=== PATIENT | male | born 1960 | race Caucasian/White ===

== ENCOUNTER 2017-12-13 05:34 | Inpatient (IN) | payer MEDICARE, MEDICAID ==
[~2017-12-13] VITALS: Ht 170.2 cm; Wt 66.7 kg
[~2017-12-13 05:34] MED LIST: ZYPREXIA PO
[2017-12-13] MEDS ORDERED: OLAN10TA3 PO (06:21)
[2017-12-13 06:40] LABS: BASOPHILS % (AUTO) 0.5 % (0.0-2.0); EOSINOPHILS % (AUTO) 1.3 % (1.0-6.0); HEMATOCRIT 39.1 % (41-53); HEMOGLOBIN 13.8 g/dL (13.5-17.5); LYMPHOCYTES # (AUTO) 1.3 K/uL (1.0-4.8); LYMPHOCYTES % (AUTO) 17.3 % (22.0-44.0); MEAN CORPUSCULAR HEMOGLOBIN 31.8 pg (26.0-34.0); MEAN CORPUSCULAR HGB CONC 35.4 G/dL (31.0-37.0); MEAN CORPUSCULAR VOLUME 90 fL (80-100); MONOCYTES # (AUTO) 0.9 K/uL (0.1-1.0); MONOCYTES % (AUTO) 11.4 % (2.0-9.0); NEUTROPHILS # (AUTO) 5.2 K/uL (1.8-7.7); NEUTROPHILS % (AUTO) 69.5 % (40.0-70.0); PLATELET COUNT (AUTO) 238 K/uL (150-450); RED BLOOD CELL COUNT(AUTO) 4.35 MIL/uL (4.50-5.90); RED CELL DISTRIBUTION WIDTH 12.2 % (11.5-14.5)
[2017-12-13 06:50] LABS: AMPHET/METH SCREEN,URINE NEGATIVE (NEGATIVE); BARBITURATE SCREEN, URINE NEGATIVE (NEGATIVE); BENZODIAZEPINES SCREEN,URINE NEGATIVE (NEGATIVE); CANNABINOID SCREEN,URINE NEGATIVE (NEGATIVE); COCAINE SCREEN,URINE NEGATIVE (NEGATIVE); METHADONE SCREEN, URINE NEGATIVE (NEGATIVE); OPIATE SCREEN,URINE NEGATIVE (NEGATIVE)
[2017-12-13 06:53] LABS: ANION GAP 6 mmol/L (8-16); CALCIUM, TOTAL 8.6 mg/dL (8.8-10.5); CARBON DIOXIDE 27 mmol/L (22-29); CHLORIDE 105 mmol/L (98-107); CREATININE 1.03 mg/dL (0.60-1.30); GLOMERULAR FILTR. RATE CALC > 60 mL/min (>60); GLUCOSE,RANDOM 110 mg/dL (70-110); POTASSIUM 3.6 mmol/L (3.5-5.1); SODIUM SERUM 138 mmol/L (136-145); UREA NITROGEN, BLOOD 22 mg/dL (7-18)
[2017-12-13 07:01] LABS: PHENCYCLIDINE SCREEN,URINE NEGATIVE (NEGATIVE)
[2017-12-13 07:07] LABS: ALANINE AMINOTRANSFERASE 71 U/L (12-78); ALBUMIN 3.4 g/dL (3.4-5.0); ALKALINE PHOSPHATASE 90 U/L (46-116); ASPARTATE AMINOTRANSFERASE 54 U/L (15-37); BILIRUBIN,TOTAL 0.2 mg/dL (0.1-1.0); TOTAL PROTEIN, SERUM 7.7 g/dL (6.4-8.2)
[2017-12-13] MEDS ORDERED: HALOPERIDOL 5 MG TABLET PO ONE (09:30)
[2017-12-13] MEDS ORDERED: DiphenhydrAMINE HCL 25 MG CAPSULE PO ONE (09:30)
[2017-12-13] MEDS ORDERED: LORazepam 2 MG TABLET PO ONE (09:30)
[2017-12-13] MEDS ORDERED: ZOLPIDEM TARTRATE 10 MG TABLET PO PRN (10:00)
[2017-12-13] MEDS ORDERED: OLANZapine 5 MG RAPDIS TABLET PO PRN (10:00)
[2017-12-13 11:32] VITALS: BP 132/66
[2017-12-13 11:38] LABS: CHOLESTEROL 116 mg/dL (131-200); HDL CHOLESTEROL 57 mg/dL (40-60); LDL CHOL (CALC.) 48 mg/dL (0-130); TRIGLYCERIDES 54 mg/dL (15-150)
[2017-12-13] MEDS: OLANZapine 10 MG TABLET PO SCH (21:26)
[2017-12-14 08:00] VITALS: BP 113/60
[2017-12-14 12:26] LABS: FOLATE SERUM 12.3 ng/mL (5.4-)
[2017-12-14 16:59] VITALS: BP 123/68
[2017-12-14] MEDS: BENZTROPINE MESYLATE 1 MG TABLET PO SCH (21:20)
[2017-12-14] MEDS: OLANZapine 10 MG TABLET PO SCH (21:20)
[2017-12-15 08:00] VITALS: BP 128/71
[2017-12-15 08:55] LABS: HEMOGLOBIN A1C 6.1 % (4.5-6.2)
[2017-12-15 09:06] LABS: ALANINE AMINOTRANSFERASE 64 U/L (12-78); ALBUMIN 3.5 g/dL (3.4-5.0); ALKALINE PHOSPHATASE 67 U/L (46-116); ANION GAP 4 mmol/L (8-16); ASPARTATE AMINOTRANSFERASE 45 U/L (15-37); BILIRUBIN,TOTAL 0.6 mg/dL (0.1-1.0); CALCIUM, TOTAL 8.9 mg/dL (8.8-10.5); CARBON DIOXIDE 31 mmol/L (22-29); CHLORIDE 101 mmol/L (98-107); CREATININE 0.73 mg/dL (0.60-1.30); FREE T4 (FREE THYROXINE) 1.07 ng/dL (0.76-1.46); GLOMERULAR FILTR. RATE CALC > 60 mL/min (>60); GLUCOSE,RANDOM 103 mg/dL (70-110); SODIUM SERUM 136 mmol/L (136-145); THYROID STIMULATING HORMONE 2.46 uIU/mL (0.36-3.74); TOTAL PROTEIN, SERUM 8.3 g/dL (6.4-8.2); UREA NITROGEN, BLOOD 8 mg/dL (7-18)
[2017-12-15 16:00] VITALS: BP 128/76
[2017-12-15] MEDS: BENZTROPINE MESYLATE 1 MG TABLET PO SCH (20:25)
[2017-12-15] MEDS: OLANZapine 10 MG TABLET PO SCH (20:25)
[2017-12-16 08:42] VITALS: BP 114/60
[2017-12-16] MEDS: BENZTROPINE MESYLATE 1 MG TABLET PO SCH (20:52)
[2017-12-16] MEDS: OLANZapine 10 MG TABLET PO SCH (20:53)
[2017-12-17 08:46] VITALS: BP 116/59
[2017-12-17] MEDS: OLANZapine 10 MG TABLET PO SCH (20:57)
[2017-12-17] MEDS: BENZTROPINE MESYLATE 1 MG TABLET PO SCH (20:57)
[2017-12-18 08:42] VITALS: BP 122/70
[2017-12-18 18:28] VITALS: BP 109/68
[2017-12-18] MEDS: BENZTROPINE MESYLATE 1 MG TABLET PO SCH (20:06)
[2017-12-18] MEDS: OLANZapine 10 MG TABLET PO SCH (20:06)
[2017-12-19 08:41] VITALS: BP 106/64
[2017-12-19] MEDS: DIVALPROEX SODIUM 500 MG DR TABLET PO SCH ×2 (09:36→20:27)
[2017-12-19] MEDS: LORazepam 2 MG TABLET PO PRN (15:51)
[2017-12-19 16:16] VITALS: BP 125/67
[2017-12-19] MEDS: BENZTROPINE MESYLATE 1 MG TABLET PO SCH (20:25)
[2017-12-19] MEDS: OLANZapine 10 MG TABLET PO SCH (20:25)
[2017-12-20] MEDS: DIVALPROEX SODIUM 500 MG DR TABLET PO SCH ×2 (08:10→21:58)
[2017-12-20 08:41] VITALS: BP 104/67
[2017-12-20 16:34] VITALS: BP 103/60
[2017-12-20] MEDS: BENZTROPINE MESYLATE 1 MG TABLET PO SCH (21:58)
[2017-12-20] MEDS: OLANZapine 10 MG TABLET PO SCH (21:58)
[2017-12-21 08:00] VITALS: BP 109/69
[2017-12-21] MEDS: DIVALPROEX SODIUM 500 MG DR TABLET PO SCH ×2 (08:30→21:51)
[2017-12-21 16:00] VITALS: BP 110/61
[2017-12-21] MEDS: BENZTROPINE MESYLATE 1 MG TABLET PO SCH (21:51)
[2017-12-21] MEDS: OLANZapine 10 MG TABLET PO SCH (21:51)
[2017-12-22] MEDS: DIVALPROEX SODIUM 500 MG DR TABLET PO SCH ×2 (08:27→20:15)
[2017-12-22 09:26] VITALS: BP 101/60
[2017-12-22 16:28] VITALS: BP 130/67
[2017-12-22] MEDS: BENZTROPINE MESYLATE 1 MG TABLET PO SCH (20:15)
[2017-12-22] MEDS: OLANZapine 10 MG TABLET PO SCH (20:15)
[2017-12-23 04:48] VITALS: BP 106/56
[2017-12-23] MEDS: DIVALPROEX SODIUM 500 MG DR TABLET PO SCH ×2 (08:20→20:11)
[2017-12-23 08:32] VITALS: BP 122/66
[2017-12-23 18:31] VITALS: BP 120/77
[2017-12-23] MEDS: BENZTROPINE MESYLATE 1 MG TABLET PO SCH (20:11)
[2017-12-23] MEDS: OLANZapine 10 MG TABLET PO SCH (20:11)
[2017-12-24 05:09] VITALS: BP 101/55
[2017-12-24] MEDS: DIVALPROEX SODIUM 500 MG DR TABLET PO SCH ×2 (08:15→20:44)
[2017-12-24 08:32] VITALS: BP 120/61
[2017-12-24 16:42] VITALS: BP 123/65
[2017-12-24] MEDS: BENZTROPINE MESYLATE 1 MG TABLET PO SCH (20:43)
[2017-12-24] MEDS: OLANZapine 10 MG TABLET PO SCH (20:44)
[2017-12-25] MEDS: DIVALPROEX SODIUM 500 MG DR TABLET PO SCH ×2 (08:22→20:55)
[2017-12-25 08:35] VITALS: BP 105/68
[2017-12-25 16:00] VITALS: BP 119/60
[2017-12-25] MEDS: LORazepam 2 MG TABLET PO PRN (16:37)
[2017-12-25] MEDS: BENZTROPINE MESYLATE 1 MG TABLET PO SCH (20:55)
[2017-12-25] MEDS: OLANZapine 10 MG TABLET PO SCH (22:00)
[2017-12-26] MEDS: DIVALPROEX SODIUM 500 MG DR TABLET PO SCH ×2 (08:16→21:33)
[2017-12-26 08:52] VITALS: BP 97/62
[2017-12-26 19:05] VITALS: BP 113/68
[2017-12-26] MEDS: OLANZapine 10 MG TABLET PO SCH (21:33)
[2017-12-26] MEDS: BENZTROPINE MESYLATE 1 MG TABLET PO SCH (21:33)
[2017-12-27] MEDS: DIVALPROEX SODIUM 500 MG DR TABLET PO SCH ×2 (07:54→21:43)
[2017-12-27 13:33] VITALS: BP 110/67
[2017-12-27 19:47] VITALS: BP 100/66
[2017-12-27] MEDS: OLANZapine 10 MG TABLET PO SCH (21:43)
[2017-12-27] MEDS: BENZTROPINE MESYLATE 1 MG TABLET PO SCH (21:44)
[2017-12-28 08:00] VITALS: BP 104/68
[2017-12-28] MEDS: DIVALPROEX SODIUM 500 MG DR TABLET PO SCH ×2 (08:46→21:29)
[2017-12-28] MEDS: OLANZapine 5 MG TABLET PO SCH (14:57)
[2017-12-28 16:00] VITALS: BP 107/69
[2017-12-28] MEDS: BENZTROPINE MESYLATE 1 MG TABLET PO SCH (21:29)
[2017-12-28] MEDS: OLANZapine 10 MG TABLET PO SCH (21:29)
[2017-12-29 08:00] VITALS: BP 101/60
[2017-12-29] MEDS: DIVALPROEX SODIUM 500 MG DR TABLET PO SCH ×2 (08:03→20:26)
[2017-12-29] MEDS: OLANZapine 5 MG TABLET PO SCH (08:03)
[2017-12-29] MEDS: LORazepam 2 MG TABLET PO PRN (11:11)
[2017-12-29 16:15] VITALS: BP 109/70
[2017-12-29] MEDS: OLANZapine 10 MG TABLET PO SCH (20:25)
[2017-12-29] MEDS: BENZTROPINE MESYLATE 1 MG TABLET PO SCH (20:25)
[2017-12-30] MEDS: DIVALPROEX SODIUM 500 MG DR TABLET PO SCH ×2 (07:51→20:38)
[2017-12-30] MEDS: OLANZapine 5 MG TABLET PO SCH (07:51)
[2017-12-30 08:28] VITALS: BP 122/71
[2017-12-30] MEDS: LORazepam 2 MG TABLET PO PRN (16:27)
[2017-12-30] MEDS: BENZTROPINE MESYLATE 1 MG TABLET PO SCH (20:38)
[2017-12-30] MEDS: OLANZapine 10 MG TABLET PO SCH (20:38)
[2017-12-31 08:05] VITALS: BP 92/64
[2017-12-31] MEDS: DIVALPROEX SODIUM 500 MG DR TABLET PO SCH ×2 (08:40→20:28)
[2017-12-31] MEDS: OLANZapine 5 MG TABLET PO SCH (08:40)
[2017-12-31] MEDS: LORazepam 2 MG TABLET PO PRN (08:42)
[2017-12-31 17:12] VITALS: BP 102/60
[2017-12-31] MEDS: BENZTROPINE MESYLATE 1 MG TABLET PO SCH (20:28)
[2017-12-31] MEDS: OLANZapine 10 MG TABLET PO SCH (20:30)
[2018-01-01] MEDS: DIVALPROEX SODIUM 500 MG DR TABLET PO SCH ×2 (09:00→20:16)
[2018-01-01] MEDS: OLANZapine 5 MG TABLET PO SCH (09:01)
[2018-01-01] MEDS: LORazepam 2 MG TABLET PO PRN (09:02)
[2018-01-01 17:03] VITALS: BP 102/56
[2018-01-01] MEDS: OLANZapine 10 MG TABLET PO SCH (20:16)
[2018-01-01] MEDS: BENZTROPINE MESYLATE 1 MG TABLET PO SCH (20:16)
[2018-01-02] MEDS: OLANZapine 5 MG TABLET PO SCH (08:27)
[2018-01-02] MEDS: DIVALPROEX SODIUM 500 MG DR TABLET PO SCH ×2 (08:27→20:19)
[2018-01-02 08:57] VITALS: BP 95/57
[2018-01-02] MEDS ORDERED: OLANZapine 5 MG TABLET PO ONE (10:30)
[2018-01-02] MEDS: BENZTROPINE MESYLATE 1 MG TABLET PO SCH (20:19)
[2018-01-02] MEDS: OLANZapine 10 MG TABLET PO SCH (20:20)
[2018-01-02 21:18] VITALS: BP 132/57
[2018-01-03 08:00] VITALS: BP 109/70
[2018-01-03] MEDS: DIVALPROEX SODIUM 500 MG DR TABLET PO SCH ×2 (09:27→21:34)
[2018-01-03] MEDS: OLANZapine 10 MG TABLET PO SCH ×2 (09:34→21:34)
[2018-01-03 16:00] VITALS: BP 125/74
[2018-01-03] MEDS: BENZTROPINE MESYLATE 1 MG TABLET PO SCH (21:34)
[2018-01-04] MEDS: DIVALPROEX SODIUM 500 MG DR TABLET PO SCH ×2 (08:41→21:07)
[2018-01-04] MEDS: OLANZapine 10 MG TABLET PO SCH ×2 (08:41→21:06)
[2018-01-04 09:00] VITALS: BP 94/63
[2018-01-04 16:33] VITALS: BP 109/62
[2018-01-04] MEDS: BENZTROPINE MESYLATE 1 MG TABLET PO SCH (21:07)
[2018-01-05 08:47] VITALS: BP 91/67
[2018-01-05] MEDS: OLANZapine 10 MG TABLET PO SCH ×2 (08:56→20:15)
[2018-01-05] MEDS: DIVALPROEX SODIUM 500 MG DR TABLET PO SCH ×2 (08:56→20:14)
[2018-01-05 18:47] VITALS: BP 102/63
[2018-01-05] MEDS: BENZTROPINE MESYLATE 1 MG TABLET PO SCH (20:14)
[2018-01-06 08:00] VITALS: BP 113/59
[2018-01-06] MEDS: DIVALPROEX SODIUM 500 MG DR TABLET PO SCH ×2 (09:22→20:59)
[2018-01-06] MEDS: OLANZapine 10 MG TABLET PO SCH ×2 (09:22→21:00)
[2018-01-06] MEDS: LORazepam 2 MG TABLET PO PRN (16:30)
[2018-01-06 16:53] VITALS: BP 125/77
[2018-01-06] MEDS: BENZTROPINE MESYLATE 1 MG TABLET PO SCH (20:59)
[2018-01-07] MEDS: OLANZapine 10 MG TABLET PO SCH ×2 (08:11→21:36)
[2018-01-07] MEDS: DIVALPROEX SODIUM 500 MG DR TABLET PO SCH ×2 (08:11→21:36)
[2018-01-07 13:01] VITALS: BP 128/62
[2018-01-07 16:21] VITALS: BP 130/77
[2018-01-07] MEDS: BENZTROPINE MESYLATE 1 MG TABLET PO SCH (21:36)
[2018-01-08] MEDS: OLANZapine 10 MG TABLET PO SCH ×2 (08:35→21:26)
[2018-01-08] MEDS: DIVALPROEX SODIUM 500 MG DR TABLET PO SCH ×2 (08:35→21:26)
[2018-01-08 10:08] VITALS: BP 101/65
[2018-01-08 16:50] VITALS: BP 120/67
[2018-01-08] MEDS: BENZTROPINE MESYLATE 1 MG TABLET PO SCH (21:25)
[2018-01-09] MEDS: DIVALPROEX SODIUM 500 MG DR TABLET PO SCH ×2 (08:52→21:12)
[2018-01-09] MEDS: OLANZapine 10 MG TABLET PO SCH ×2 (08:52→21:12)
[2018-01-09 08:55] VITALS: BP 136/74
[2018-01-09] MEDS ORDERED: DIVA-78 PO (10:23)
[2018-01-09] MEDS ORDERED: OLAN10TA20 PO ×2 (10:23)
[2018-01-09] MEDS: LORazepam 2 MG TABLET PO PRN (12:51)
[2018-01-09 17:00] VITALS: BP 107/58
[2018-01-09] MEDS: BENZTROPINE MESYLATE 1 MG TABLET PO SCH (21:11)
[2018-01-10] MEDS: DIVALPROEX SODIUM 500 MG DR TABLET PO SCH ×2 (08:02→20:24)
[2018-01-10] MEDS: OLANZapine 10 MG TABLET PO SCH ×2 (08:02→20:24)
[2018-01-10 08:56] VITALS: BP 124/84
[2018-01-10 16:44] VITALS: BP 112/58
[2018-01-10] MEDS: BENZTROPINE MESYLATE 1 MG TABLET PO SCH (20:24)
[2018-01-11] MEDS: DIVALPROEX SODIUM 500 MG DR TABLET PO SCH ×2 (09:03→20:31)
[2018-01-11] MEDS: OLANZapine 10 MG TABLET PO SCH ×2 (09:04→20:31)
[2018-01-11 10:28] VITALS: BP 104/59
[2018-01-11 16:00] VITALS: BP 135/63
[2018-01-11] MEDS: BENZTROPINE MESYLATE 1 MG TABLET PO SCH (20:31)
[2018-01-12 08:00] VITALS: BP 108/60
[2018-01-12] MEDS: DIVALPROEX SODIUM 500 MG DR TABLET PO SCH ×2 (08:57→21:18)
[2018-01-12] MEDS: OLANZapine 10 MG TABLET PO SCH ×2 (08:58→21:19)
[2018-01-12] MEDS: LORazepam 2 MG TABLET PO PRN (15:57)
[2018-01-12 16:30] VITALS: BP 137/70
[2018-01-12] MEDS: BENZTROPINE MESYLATE 1 MG TABLET PO SCH (21:18)
[2018-01-13 08:31] VITALS: BP 97/61
[2018-01-13] MEDS: DIVALPROEX SODIUM 500 MG DR TABLET PO SCH ×2 (09:00→20:51)
[2018-01-13] MEDS: LORazepam 2 MG TABLET PO PRN ×2 (09:00→20:51)
[2018-01-13] MEDS: OLANZapine 10 MG TABLET PO SCH ×2 (09:00→20:52)
[2018-01-13] MEDS: BENZTROPINE MESYLATE 1 MG TABLET PO SCH (20:52)
[2018-01-14 08:00] VITALS: BP 118/63
[2018-01-14] MEDS: DIVALPROEX SODIUM 500 MG DR TABLET PO SCH ×2 (08:43→20:31)
[2018-01-14] MEDS: OLANZapine 10 MG TABLET PO SCH ×2 (08:43→20:31)
[2018-01-14] MEDS: LORazepam 2 MG TABLET PO PRN (10:42)
[2018-01-14 16:30] VITALS: BP 99/58
[2018-01-14] MEDS: BENZTROPINE MESYLATE 1 MG TABLET PO SCH (20:30)
[2018-01-15 08:00] VITALS: BP 101/61
[2018-01-15] MEDS: DIVALPROEX SODIUM 500 MG DR TABLET PO SCH ×2 (08:26→20:01)
[2018-01-15] MEDS: OLANZapine 10 MG TABLET PO SCH ×2 (08:26→20:01)
[2018-01-15] MEDS: LORazepam 2 MG TABLET PO PRN (08:26)
[2018-01-15] MEDS: BENZTROPINE MESYLATE 1 MG TABLET PO SCH (20:01)
[2018-01-16] MEDS: DIVALPROEX SODIUM 500 MG DR TABLET PO SCH ×2 (08:08→20:07)
[2018-01-16] MEDS: OLANZapine 10 MG TABLET PO SCH ×2 (08:08→20:08)
[2018-01-16] MEDS: LORazepam 2 MG TABLET PO PRN (08:09)
[2018-01-16 09:43] VITALS: BP 104/74
[2018-01-16 16:52] VITALS: BP 132/98
[2018-01-16] MEDS: BENZTROPINE MESYLATE 1 MG TABLET PO SCH (20:08)
[2018-01-17 08:05] VITALS: BP 98/62
[2018-01-17] MEDS: OLANZapine 10 MG TABLET PO SCH ×2 (08:47→20:34)
[2018-01-17] MEDS: DIVALPROEX SODIUM 500 MG DR TABLET PO SCH ×2 (08:47→20:34)
[2018-01-17 16:58] VITALS: BP 103/68
[2018-01-17] MEDS: BENZTROPINE MESYLATE 1 MG TABLET PO SCH (20:34)
[2018-01-18 08:00] VITALS: BP 111/67
[2018-01-18] MEDS: OLANZapine 10 MG TABLET PO SCH (08:11)
[2018-01-18] MEDS: DIVALPROEX SODIUM 500 MG DR TABLET PO SCH (08:11)
[2018-01-18] MEDS ORDERED: OLAN10TA20 PO (09:34)
[2018-01-18] MEDS ORDERED: BENZ1TAB10 PO (10:35)
[2018-01-18] MEDS: LORazepam 2 MG TABLET PO PRN (13:27)
== END 2018-01-18 14:30 | disposition home or self-care (01) | DRG 885 ==
LOC: EMS 05:34 → 3EC 10:48
DX: F20.0 Paranoid schizophrenia (principal); R79.89 Other specified abnormal findings of blood chemistry; F17.210 Nicotine dependence, cigarettes, uncomplicated; F15.90 Other stimulant use, unspecified, uncomplicated; Z79.899 Other long term (current) drug therapy; Z72.89 Other problems related to lifestyle
CPT/HCPCS: 80074; 82306; 82607; 82746; 83036; 84439; 84443; 87081; 99285; G0480

== ENCOUNTER 2018-01-19 21:01 | Emergency (ER) | payer MEDICARE, MEDICAID ==
[~2018-01-19] VITALS: Ht 165.1 cm; Wt 64.0 kg
[~2018-01-19 21:01] MED LIST changes: +BENZ1TAB10 PO; +DIVA-78 PO; +OLAN10TA20 PO; -ZYPREXIA PO
[2018-01-19 21:45] LABS: BASOPHILS % (AUTO) 0.9 % (0.0-2.0); EOSINOPHILS % (AUTO) 0.3 % (1.0-6.0); HEMATOCRIT 38.6 % (41-53); HEMOGLOBIN 13.1 g/dL (13.5-17.5); LYMPHOCYTES # (AUTO) 1.8 K/uL (1.0-4.8); LYMPHOCYTES % (AUTO) 27.2 % (22.0-44.0); MEAN CORPUSCULAR HEMOGLOBIN 30.7 pg (26.0-34.0); MEAN CORPUSCULAR VOLUME 91 fL (80-100); MONOCYTES # (AUTO) 1.2 K/uL (0.1-1.0); MONOCYTES % (AUTO) 18.4 % (2.0-9.0); NEUTROPHILS # (AUTO) 3.5 K/uL (1.8-7.7); NEUTROPHILS % (AUTO) 53.2 % (40.0-70.0); PLATELET COUNT (AUTO) 154 K/uL (150-450); RED BLOOD CELL COUNT(AUTO) 4.26 MIL/uL (4.50-5.90); RED CELL DISTRIBUTION WIDTH 13.8 % (11.5-14.5)
[2018-01-19 21:54] LABS: ANION GAP 7 mmol/L (8-16); CALCIUM, TOTAL 8.6 mg/dL (8.8-10.5); CARBON DIOXIDE 27 mmol/L (22-29); CHLORIDE 104 mmol/L (98-107); CREATININE 1.15 mg/dL (0.60-1.30); GLOMERULAR FILTR. RATE CALC > 60 mL/min (>60); GLUCOSE,RANDOM 134 mg/dL (70-110); POTASSIUM 3.9 mmol/L (3.5-5.1); SODIUM SERUM 138 mmol/L (136-145); UREA NITROGEN, BLOOD 20 mg/dL (7-18)
[2018-01-19 22:00] LABS: ALANINE AMINOTRANSFERASE 164 U/L (12-78); ALBUMIN 3.3 g/dL (3.4-5.0); ALKALINE PHOSPHATASE 76 U/L (46-116); ASPARTATE AMINOTRANSFERASE 110 U/L (15-37); BILIRUBIN,TOTAL 0.3 mg/dL (0.1-1.0); VALPROIC ACID 27 mcg/mL (50-100)
[2018-01-19] MEDS ORDERED: LORazepam 2 MG/ML VIAL IM ONE (22:15)
[2018-01-19] MEDS ORDERED: DiphenhydrAMINE HCL 50 MG/ML VIAL IM ONE (22:15)
[2018-01-19] MEDS ORDERED: HALOPERIDOL LACTATE 5 MG/ML VIAL IM ONE (22:15)
[2018-01-19 23:13] LABS: AMPHET/METH SCREEN,URINE NEGATIVE (NEGATIVE); BARBITURATE SCREEN, URINE NEGATIVE (NEGATIVE); BENZODIAZEPINES SCREEN,URINE NEGATIVE (NEGATIVE); CANNABINOID SCREEN,URINE NEGATIVE (NEGATIVE); COCAINE SCREEN,URINE NEGATIVE (NEGATIVE); METHADONE SCREEN, URINE NEGATIVE (NEGATIVE); OPIATE SCREEN,URINE NEGATIVE (NEGATIVE)
[2018-01-19 23:21] LABS: PHENCYCLIDINE SCREEN,URINE NEGATIVE (NEGATIVE)
[2018-01-20 06:44] VITALS: BP 143/73
== END 2018-01-20 06:46 | disposition home or self-care (01) ==
LOC: EMS 21:02
DX: F20.0 Paranoid schizophrenia (principal); F17.210 Nicotine dependence, cigarettes, uncomplicated; Z79.899 Other long term (current) drug therapy
CPT/HCPCS: 36415; 80053; 80164; 80307; 85025; 96372; 99285; G0480; J1200; J1630; J2060

== ENCOUNTER 2018-01-27 12:24 | Inpatient (IN) | payer MEDICARE, MEDICAID ==
[~2018-01-27] VITALS: Ht 167.6 cm; Wt 64.0 kg
[2018-01-27] MEDS ORDERED: HALOPERIDOL LACTATE 5 MG/ML VIAL IM ONE (12:45)
[2018-01-27] MEDS ORDERED: DiphenhydrAMINE HCL 50 MG/ML VIAL IM ONE (12:45)
[2018-01-27] MEDS ORDERED: LORazepam 2 MG/ML VIAL IM ONE (12:45)
[2018-01-27 12:49] LABS: BASOPHILS % (AUTO) 1.2 % (0.0-2.0); EOSINOPHILS % (AUTO) 0.9 % (1.0-6.0); HEMATOCRIT 38.3 % (41-53); HEMOGLOBIN 13.1 g/dL (13.5-17.5); LYMPHOCYTES # (AUTO) 1.5 K/uL (1.0-4.8); MEAN CORPUSCULAR HGB CONC 34.2 G/dL (31.0-37.0); MEAN CORPUSCULAR VOLUME 91 fL (80-100); MONOCYTES # (AUTO) 0.6 K/uL (0.1-1.0); MONOCYTES % (AUTO) 12.5 % (2.0-9.0); NEUTROPHILS # (AUTO) 2.9 K/uL (1.8-7.7); NEUTROPHILS % (AUTO) 56.4 % (40.0-70.0); PLATELET COUNT (AUTO) 207 K/uL (150-450); RED BLOOD CELL COUNT(AUTO) 4.23 MIL/uL (4.50-5.90); RED CELL DISTRIBUTION WIDTH 14.1 % (11.5-14.5)
[2018-01-27 13:10] LABS: ANION GAP 10 mmol/L (8-16); CALCIUM, TOTAL 8.5 mg/dL (8.8-10.5); CARBON DIOXIDE 26 mmol/L (22-29); CHLORIDE 102 mmol/L (98-107); GLOMERULAR FILTR. RATE CALC > 60 mL/min (>60); GLUCOSE,RANDOM 122 mg/dL (70-110); POTASSIUM 3.9 mmol/L (3.5-5.1); SODIUM SERUM 138 mmol/L (136-145); UREA NITROGEN, BLOOD 10 mg/dL (7-18)
[2018-01-27 13:12] LABS: ALANINE AMINOTRANSFERASE 91 U/L (12-78); ALBUMIN 3.2 g/dL (3.4-5.0); ALKALINE PHOSPHATASE 76 U/L (46-116); ASPARTATE AMINOTRANSFERASE 54 U/L (15-37); BILIRUBIN,TOTAL 0.4 mg/dL (0.1-1.0); TOTAL PROTEIN, SERUM 7.9 g/dL (6.4-8.2)
[2018-01-27 15:28] LABS: APPEARANCE,URINE CLEAR (CLEAR); BILIRUBIN,URINE NEGATIVE (NEGATIVE); GLUCOSE, URINE (UA) NEGATIVE (NEGATIVE); KETONES,URINE NEGATIVE (NEGATIVE); LEUKOCYTE ESTERASE ,URINE NEGATIVE (NEGATIVE); NITRATE,URINE NEGATIVE (NEGATIVE); OCCULT BLOOD,URINE NEGATIVE (NEGATIVE); PROTEIN,URINE NEGATIVE (NEGATIVE); UROBILINOGEN,URINE 0.2 mg/dL (<=1.0)
[2018-01-27 15:40] LABS: AMPHET/METH SCREEN,URINE NEGATIVE (NEGATIVE); BARBITURATE SCREEN, URINE NEGATIVE (NEGATIVE); BENZODIAZEPINES SCREEN,URINE NEGATIVE (NEGATIVE); CANNABINOID SCREEN,URINE NEGATIVE (NEGATIVE); COCAINE SCREEN,URINE NEGATIVE (NEGATIVE); METHADONE SCREEN, URINE NEGATIVE (NEGATIVE); OPIATE SCREEN,URINE NEGATIVE (NEGATIVE)
[2018-01-27 15:41] LABS: PHENCYCLIDINE SCREEN,URINE NEGATIVE (NEGATIVE)
[2018-01-27 22:26] VITALS: BP 117/77
[2018-01-28 05:38] VITALS: BP 106/60
[2018-01-28 08:21] VITALS: BP 116/64
[2018-01-28] MEDS: DIVALPROEX SODIUM 500 MG DR TABLET PO SCH ×2 (10:49→20:17)
[2018-01-28] MEDS: OLANZapine 10 MG TABLET PO SCH ×2 (10:49→20:17)
[2018-01-28 16:00] VITALS: BP 113/68
[2018-01-28] MEDS: BENZTROPINE MESYLATE 1 MG TABLET PO SCH (20:17)
[2018-01-29 06:52] VITALS: BP 108/67
[2018-01-29 08:07] VITALS: BP 138/75
[2018-01-29] MEDS: LORazepam 2 MG TABLET PO PRN ×2 (08:32→17:16)
[2018-01-29] MEDS: OLANZapine 10 MG TABLET PO SCH ×2 (08:32→20:17)
[2018-01-29] MEDS: HALOPERIDOL 5 MG TABLET PO PRN ×2 (08:32→17:16)
[2018-01-29] MEDS: DIVALPROEX SODIUM 500 MG DR TABLET PO SCH ×2 (08:32→20:17)
[2018-01-29 16:00] VITALS: BP 108/65
[2018-01-29] MEDS: BENZTROPINE MESYLATE 1 MG TABLET PO SCH (20:17)
[2018-01-30 06:16] VITALS: BP 100/58
[2018-01-30] MEDS: DIVALPROEX SODIUM 500 MG DR TABLET PO SCH ×2 (08:03→21:05)
[2018-01-30] MEDS: OLANZapine 10 MG TABLET PO SCH ×2 (08:03→21:05)
[2018-01-30] MEDS: LORazepam 2 MG TABLET PO PRN ×2 (08:03→16:33)
[2018-01-30] MEDS: HALOPERIDOL 5 MG TABLET PO PRN ×2 (08:03→16:33)
[2018-01-30 10:22] VITALS: BP 119/68
[2018-01-30 16:00] VITALS: BP 121/65
[2018-01-30] MEDS: ZOLPIDEM TARTRATE 10 MG TABLET PO PRN (21:05)
[2018-01-30] MEDS: BENZTROPINE MESYLATE 1 MG TABLET PO SCH (21:05)
[2018-01-31 06:13] VITALS: BP 113/68
[2018-01-31 09:06] VITALS: BP 116/67
[2018-01-31] MEDS: DIVALPROEX SODIUM 500 MG DR TABLET PO SCH ×2 (10:25→20:22)
[2018-01-31] MEDS: OLANZapine 10 MG TABLET PO SCH ×2 (10:26→20:22)
[2018-01-31 16:30] VITALS: BP 124/78
[2018-01-31] MEDS: ZOLPIDEM TARTRATE 10 MG TABLET PO PRN (20:22)
[2018-01-31] MEDS: BENZTROPINE MESYLATE 1 MG TABLET PO SCH (20:22)
[2018-02-01 00:05] VITALS: BP 101/63
[2018-02-01 08:12] VITALS: BP 111/75
[2018-02-01] MEDS: OLANZapine 10 MG TABLET PO SCH ×2 (08:19→20:33)
[2018-02-01] MEDS: DIVALPROEX SODIUM 500 MG DR TABLET PO SCH ×2 (08:19→20:35)
[2018-02-01 16:00] VITALS: BP 118/69
[2018-02-01] MEDS: LORazepam 2 MG TABLET PO PRN (16:18)
[2018-02-01] MEDS: HALOPERIDOL 5 MG TABLET PO PRN (16:18)
[2018-02-01] MEDS ORDERED: BISACODYL 5 MG EC TABLET PO PRN (16:45)
[2018-02-01] MEDS: BENZTROPINE MESYLATE 1 MG TABLET PO SCH (20:33)
[2018-02-01] MEDS: PALIPERIDONE 3 MG ER TABLET PO SCH (20:33)
[2018-02-01] MEDS: ZOLPIDEM TARTRATE 10 MG TABLET PO PRN (20:33)
[2018-02-02 06:14] VITALS: BP 114/63
[2018-02-02 08:01] VITALS: BP 125/68
[2018-02-02] MEDS: PALIPERIDONE 3 MG ER TABLET PO SCH ×2 (08:18→20:19)
[2018-02-02] MEDS: DIVALPROEX SODIUM 500 MG DR TABLET PO SCH ×2 (08:19→20:19)
[2018-02-02 16:00] VITALS: BP 134/76
[2018-02-02] MEDS ORDERED: PALIPERIDONE PALMITATE 234 MG/1.5 ML SYRINGE IM ONE (16:00)
[2018-02-02] MEDS: BENZTROPINE MESYLATE 1 MG TABLET PO SCH (20:19)
[2018-02-02] MEDS: OLANZapine 10 MG TABLET PO SCH (20:19)
[2018-02-02] MEDS: LORazepam 2 MG TABLET PO PRN (20:20)
[2018-02-03 06:15] VITALS: BP 128/74
[2018-02-03 08:00] VITALS: BP 116/65
[2018-02-03] MEDS: DIVALPROEX SODIUM 500 MG DR TABLET PO SCH ×2 (08:32→20:10)
[2018-02-03] MEDS: PALIPERIDONE 3 MG ER TABLET PO SCH ×2 (08:32→20:10)
[2018-02-03 16:00] VITALS: BP 129/71
[2018-02-03] MEDS: LORazepam 2 MG TABLET PO PRN (16:17)
[2018-02-03] MEDS: BENZTROPINE MESYLATE 1 MG TABLET PO SCH (20:10)
[2018-02-03] MEDS: OLANZapine 10 MG TABLET PO SCH (20:10)
[2018-02-04 06:03] VITALS: BP 105/68
[2018-02-04 08:18] VITALS: BP 101/61
[2018-02-04] MEDS: DIVALPROEX SODIUM 500 MG DR TABLET PO SCH ×2 (08:29→20:50)
[2018-02-04] MEDS: PALIPERIDONE 3 MG ER TABLET PO SCH ×2 (08:30→20:50)
[2018-02-04 16:21] VITALS: BP 119/63
[2018-02-04] MEDS: LORazepam 2 MG TABLET PO PRN (18:12)
[2018-02-04] MEDS: HALOPERIDOL 5 MG TABLET PO PRN (18:12)
[2018-02-04] MEDS: OLANZapine 10 MG TABLET PO SCH (20:50)
[2018-02-04] MEDS: ZOLPIDEM TARTRATE 10 MG TABLET PO PRN (20:50)
[2018-02-04] MEDS: BENZTROPINE MESYLATE 1 MG TABLET PO SCH (20:50)
[2018-02-05 06:58] VITALS: BP 117/67
[2018-02-05 08:01] VITALS: BP 103/58
[2018-02-05] MEDS: DIVALPROEX SODIUM 500 MG DR TABLET PO SCH ×2 (08:18→20:25)
[2018-02-05] MEDS: PALIPERIDONE 3 MG ER TABLET PO SCH ×2 (08:18→20:26)
[2018-02-05 16:19] VITALS: BP 111/63
[2018-02-05] MEDS: OLANZapine 10 MG TABLET PO SCH (20:25)
[2018-02-05] MEDS: BENZTROPINE MESYLATE 1 MG TABLET PO SCH (20:25)
[2018-02-05] MEDS: LORazepam 2 MG TABLET PO PRN (20:26)
[2018-02-05] MEDS: ZOLPIDEM TARTRATE 10 MG TABLET PO PRN (20:26)
[2018-02-06 06:19] VITALS: BP 107/66
[2018-02-06 08:32] VITALS: BP 113/64
[2018-02-06] MEDS: PALIPERIDONE 3 MG ER TABLET PO SCH ×2 (08:34→21:06)
[2018-02-06] MEDS: DIVALPROEX SODIUM 500 MG DR TABLET PO SCH ×2 (08:34→21:05)
[2018-02-06] MEDS ORDERED: PALIPERIDONE PALMITATE 156 MG/ML SYRINGE IM ONE (09:00)
[2018-02-06 09:46] LABS: ALANINE AMINOTRANSFERASE 40 U/L (12-78); ALBUMIN 3.1 g/dL (3.4-5.0); ALKALINE PHOSPHATASE 95 U/L (46-116); ANION GAP 8 mmol/L (8-16); ASPARTATE AMINOTRANSFERASE 28 U/L (15-37); BILIRUBIN,TOTAL 0.3 mg/dL (0.1-1.0); CALCIUM, TOTAL 8.9 mg/dL (8.8-10.5); CARBON DIOXIDE 30 mmol/L (22-29); CHLORIDE 108 mmol/L (98-107); CREATININE 0.75 mg/dL (0.60-1.30); GLOMERULAR FILTR. RATE CALC > 60 mL/min (>60); GLUCOSE,RANDOM 86 mg/dL (70-110); POTASSIUM 4.6 mmol/L (3.5-5.1); SODIUM SERUM 146 mmol/L (136-145); TOTAL PROTEIN, SERUM 7.9 g/dL (6.4-8.2); UREA NITROGEN, BLOOD 10 mg/dL (7-18)
[2018-02-06 13:06] LABS: CREATINE KINASE MB < 0.5 ng/mL (0-5)
[2018-02-06 16:00] VITALS: BP 121/72
[2018-02-06] MEDS: OLANZapine 10 MG TABLET PO SCH (21:05)
[2018-02-06] MEDS: BENZTROPINE MESYLATE 1 MG TABLET PO SCH (21:05)
[2018-02-06] MEDS: LORazepam 2 MG TABLET PO PRN (21:06)
[2018-02-07 04:49] VITALS: BP 118/69
[2018-02-07 08:00] VITALS: BP 112/64
[2018-02-07] MEDS: DIVALPROEX SODIUM 500 MG DR TABLET PO SCH (08:07)
[2018-02-07] MEDS: PALIPERIDONE 3 MG ER TABLET PO SCH (08:08)
[2018-02-07] MEDS ORDERED: PALI3 PO (10:39)
[2018-02-07] MEDS ORDERED: OLAN10TA3 PO (10:41)
== END 2018-02-07 11:40 | disposition home or self-care (01) | DRG 885 ==
LOC: EMS 12:24 → B3A 20:24 → EMS 21:48
DX: F25.0 Schizoaffective disorder, bipolar type (principal); E87.0 Hyperosmolality and hypernatremia; B19.20 Unspecified viral hepatitis C without hepatic coma; D64.9 Anemia, unspecified; F17.210 Nicotine dependence, cigarettes, uncomplicated; S01.81XA Laceration without foreign body of other part of head, initial encounter; X58.XXXA Exposure to other specified factors, initial encounter; E86.0 Dehydration; K59.00 Constipation, unspecified; L30.9 Dermatitis, unspecified; Y93.89 Activity, other specified; Y92.89 Other specified places as the place of occurrence of the external cause; Y99.8 Other external cause status; Z91.14 Patient's other noncompliance with medication regimen
CPT/HCPCS: 83735; 99285; G0480; J1200; J1630; J2060

== ENCOUNTER 2018-02-19 18:56 | Emergency (ER) | payer MEDICARE, MEDICAID ==
[~2018-02-19] VITALS: Ht 172.7 cm; Wt 84.1 kg
[~2018-02-19 18:56] MED LIST changes: -OLAN10TA20 PO; +OLAN10TA3 PO; +PALI3 PO
[2018-02-19] MEDS ORDERED: IBUPROFEN 800 MG TABLET PO ONE (19:30)
[2018-02-19 20:43] VITALS: BP 120/70
== END 2018-02-19 20:43 | disposition home or self-care (01) ==
LOC: EMS 18:57
DX: S62.613A Displaced fracture of proximal phalanx of left middle finger, initial encounter for closed fracture (principal); F20.9 Schizophrenia, unspecified; F17.210 Nicotine dependence, cigarettes, uncomplicated; X58.XXXA Exposure to other specified factors, initial encounter; Y93.72 Activity, wrestling; Y92.89 Other specified places as the place of occurrence of the external cause; Y99.8 Other external cause status
CPT/HCPCS: 99284; 99406

== ENCOUNTER 2018-04-21 22:48 | Inpatient (IN) | payer MEDICARE, MEDICAID ==
[~2018-04-21] VITALS: Ht 170.2 cm; Wt 65.0 kg
[2018-04-21 23:24] LABS: BASOPHILS % (AUTO) 0.5 % (0.0-2.0); EOSINOPHILS % (AUTO) 1.7 % (1.0-6.0); HEMATOCRIT 38.5 % (41-53); HEMOGLOBIN 13.1 g/dL (13.5-17.5); LYMPHOCYTES # (AUTO) 1.5 K/uL (1.0-4.8); MEAN CORPUSCULAR HEMOGLOBIN 29.2 pg (26.0-34.0); MEAN CORPUSCULAR HGB CONC 34.1 G/dL (31.0-37.0); MEAN CORPUSCULAR VOLUME 86 fL (80-100); MONOCYTES # (AUTO) 0.7 K/uL (0.1-1.0); MONOCYTES % (AUTO) 14.7 % (2.0-9.0); NEUTROPHILS # (AUTO) 2.3 K/uL (1.8-7.7); NEUTROPHILS % (AUTO) 50.1 % (40.0-70.0); PLATELET COUNT (AUTO) 186 K/uL (150-450); RED BLOOD CELL COUNT(AUTO) 4.49 MIL/uL (4.50-5.90); RED CELL DISTRIBUTION WIDTH 13.9 % (11.5-14.5)
[2018-04-21 23:34] LABS: ANION GAP 7 mmol/L (8-16); CALCIUM, TOTAL 9.1 mg/dL (8.8-10.5); CARBON DIOXIDE 32 mmol/L (22-29); CHLORIDE 101 mmol/L (98-107); CREATININE 0.78 mg/dL (0.60-1.30); GLOMERULAR FILTR. RATE CALC > 60 mL/min (>60); GLUCOSE,RANDOM 99 mg/dL (70-110); POTASSIUM 3.9 mmol/L (3.5-5.1); SODIUM SERUM 140 mmol/L (136-145); UREA NITROGEN, BLOOD 11 mg/dL (7-18)
[2018-04-21 23:40] LABS: ALANINE AMINOTRANSFERASE 85 U/L (12-78); ALBUMIN 2.9 g/dL (3.4-5.0); ALKALINE PHOSPHATASE 96 U/L (46-116); ASPARTATE AMINOTRANSFERASE 59 U/L (15-37); BILIRUBIN,TOTAL 0.2 mg/dL (0.1-1.0); TOTAL PROTEIN, SERUM 7.3 g/dL (6.4-8.2)
[2018-04-22 00:57] LABS: AMPHET/METH SCREEN,URINE POSITIVE (NEGATIVE); BARBITURATE SCREEN, URINE NEGATIVE (NEGATIVE); BENZODIAZEPINES SCREEN,URINE NEGATIVE (NEGATIVE); CANNABINOID SCREEN,URINE POSITIVE (NEGATIVE); COCAINE SCREEN,URINE NEGATIVE (NEGATIVE); METHADONE SCREEN, URINE NEGATIVE (NEGATIVE); OPIATE SCREEN,URINE NEGATIVE (NEGATIVE)
[2018-04-22 00:58] LABS: PHENCYCLIDINE SCREEN,URINE NEGATIVE (NEGATIVE)
[2018-04-22] MEDS ORDERED: HALOPERIDOL 5 MG TABLET PO PRN (01:15)
[2018-04-22 05:05] VITALS: BP 109/69
[2018-04-22 08:36] VITALS: BP 130/66
[2018-04-22] MEDS: ARIPiprazole 10 MG TABLET PO SCH (14:43)
[2018-04-22 16:34] VITALS: BP 112/60
[2018-04-23 06:18] VITALS: BP 110/68
[2018-04-23 08:28] LABS: CHOL/HDL RATIO 2.9 (4.2-7.3)
[2018-04-23 08:55] VITALS: BP 118/60
[2018-04-23] MEDS: MULTIVITAMINS WITH IRON TABLET PO SCH (09:45)
[2018-04-23] MEDS: ARIPiprazole 10 MG TABLET PO SCH (09:45)
[2018-04-23 16:03] VITALS: BP 111/64
[2018-04-23] MEDS ORDERED: IBUPROFEN 600 MG TABLET PO PRN (17:45)
[2018-04-23] MEDS: ACETAMINOPHEN 325 MG TABLET PO PRN (18:11)
[2018-04-23] MEDS: ZOLPIDEM TARTRATE 10 MG TABLET PO PRN (20:53)
[2018-04-24 06:59] VITALS: BP 120/81
[2018-04-24 08:27] VITALS: BP 121/74
[2018-04-24] MEDS: ARIPiprazole 15 MG TABLET PO SCH (09:17)
[2018-04-24] MEDS: MULTIVITAMINS WITH IRON TABLET PO SCH (09:17)
[2018-04-24] MEDS: LORazepam 2 MG TABLET PO PRN (14:21)
[2018-04-24 16:05] VITALS: BP 132/71
[2018-04-25 08:16] VITALS: BP 106/68
[2018-04-25] MEDS: ARIPiprazole 15 MG TABLET PO SCH (08:52)
[2018-04-25] MEDS: MULTIVITAMINS WITH IRON TABLET PO SCH (08:52)
[2018-04-25 16:18] VITALS: BP 130/71
[2018-04-26 03:19] VITALS: BP 126/80
[2018-04-26] MEDS: LORazepam 2 MG TABLET PO PRN (03:23)
[2018-04-26 08:26] VITALS: BP 112/67
[2018-04-26] MEDS: MULTIVITAMINS WITH IRON TABLET PO SCH (08:55)
[2018-04-26] MEDS ORDERED: ARIPiprazole 10 MG TABLET PO SCH (09:00)
[2018-04-26 16:06] VITALS: BP 113/90
[2018-04-27 05:44] VITALS: BP 112/66
[2018-04-27 08:07] VITALS: BP 121/67
[2018-04-27] MEDS: MULTIVITAMINS WITH IRON TABLET PO SCH (08:17)
[2018-04-27] MEDS: ARIPiprazole 15 MG TABLET PO SCH (08:17)
[2018-04-27 14:37] VITALS: BP 116/68
[2018-04-27] MEDS: ACETAMINOPHEN 325 MG TABLET PO PRN (14:37)
[2018-04-27 16:06] VITALS: BP 110/69
[2018-04-27] MEDS: LORazepam 2 MG TABLET PO PRN (18:04)
[2018-04-28 05:51] VITALS: BP 116/72
[2018-04-28 08:08] VITALS: BP 111/65
[2018-04-28] MEDS: ARIPiprazole 15 MG TABLET PO SCH (08:21)
[2018-04-28] MEDS: MULTIVITAMINS WITH IRON TABLET PO SCH (08:21)
[2018-04-28] MEDS ORDERED: ARIPiprazole LAUROXIL ER SUSPENSION 882 MG/3.2 ML SYRINGE IM ONE (09:45)
[2018-04-28 16:14] VITALS: BP 119/66
[2018-04-29 03:30] VITALS: BP 121/68
[2018-04-29] MEDS: MULTIVITAMINS WITH IRON TABLET PO SCH (08:18)
[2018-04-29] MEDS: ARIPiprazole 15 MG TABLET PO SCH (08:18)
[2018-04-29 08:30] VITALS: BP 121/67
[2018-04-29] MEDS: LORazepam 2 MG TABLET PO PRN (13:04)
[2018-04-29 16:04] VITALS: BP 118/69
[2018-04-30 05:16] VITALS: BP 121/68
[2018-04-30] MEDS: ARIPiprazole 15 MG TABLET PO SCH (08:19)
[2018-04-30] MEDS: MULTIVITAMINS WITH IRON TABLET PO SCH (08:19)
[2018-04-30 08:24] VITALS: BP 107/76
[2018-04-30] MEDS: LORazepam 2 MG TABLET PO PRN (16:02)
[2018-04-30 16:18] VITALS: BP 109/63
[2018-05-01 06:11] VITALS: BP 120/81
[2018-05-01] MEDS: MULTIVITAMINS WITH IRON TABLET PO SCH (08:04)
[2018-05-01] MEDS: ARIPiprazole 15 MG TABLET PO SCH (08:04)
[2018-05-01 08:16] VITALS: BP 117/64
[2018-05-01] MEDS ORDERED: DiphenhydrAMINE HCL 50 MG/ML VIAL ONE (10:40)
[2018-05-01] MEDS ORDERED: LORazepam 2 MG/ML VIAL ONE (10:40)
[2018-05-01] MEDS ORDERED: HALOPERIDOL LACTATE 5 MG/ML VIAL ONE (10:40)
[2018-05-01] MEDS ORDERED: HALOPERIDOL LACTATE 5 MG/ML VIAL IM ONE ×2 (10:45)
[2018-05-01] MEDS ORDERED: DiphenhydrAMINE HCL 50 MG/ML VIAL IM ONE ×2 (10:45)
[2018-05-01] MEDS ORDERED: LORazepam 2 MG/ML VIAL IM ONE ×2 (10:45)
[2018-05-01 11:15] VITALS: BP 113/65
[2018-05-01 16:09] VITALS: BP 110/68
[2018-05-01] MEDS: VALPROIC ACID 250 MG CAPSULE PO SCH (16:41)
[2018-05-01] MEDS: LORazepam 2 MG TABLET PO PRN (17:26)
[2018-05-02 04:10] VITALS: BP 112/66
[2018-05-02 08:12] VITALS: BP 122/70
[2018-05-02] MEDS: VALPROIC ACID 250 MG CAPSULE PO SCH ×2 (08:17→16:35)
[2018-05-02] MEDS: ARIPiprazole 15 MG TABLET PO SCH (08:18)
[2018-05-02] MEDS: MULTIVITAMINS WITH IRON TABLET PO SCH (08:18)
[2018-05-02 09:08] LABS: ALANINE AMINOTRANSFERASE 54 U/L (12-78); ALKALINE PHOSPHATASE 93 U/L (46-116); ANION GAP 7 mmol/L (8-16); ASPARTATE AMINOTRANSFERASE 34 U/L (15-37); BILIRUBIN,TOTAL 0.2 mg/dL (0.1-1.0); CALCIUM, TOTAL 8.6 mg/dL (8.8-10.5); CARBON DIOXIDE 28 mmol/L (22-29); CHLORIDE 103 mmol/L (98-107); GLOMERULAR FILTR. RATE CALC > 60 mL/min (>60); GLUCOSE,RANDOM 103 mg/dL (70-110); POTASSIUM 4.4 mmol/L (3.5-5.1); SODIUM SERUM 138 mmol/L (136-145); TOTAL PROTEIN, SERUM 7.1 g/dL (6.4-8.2); UREA NITROGEN, BLOOD 11 mg/dL (7-18)
[2018-05-02] MEDS: LORazepam 2 MG TABLET PO PRN (13:58)
[2018-05-02 16:10] VITALS: BP 135/86
[2018-05-03 01:29] VITALS: BP 106/67
[2018-05-03] MEDS: ARIPiprazole 15 MG TABLET PO SCH (08:06)
[2018-05-03] MEDS: VALPROIC ACID 250 MG CAPSULE PO SCH ×2 (08:06→16:51)
[2018-05-03] MEDS: MULTIVITAMINS WITH IRON TABLET PO SCH (08:06)
[2018-05-03 08:17] VITALS: BP 117/67
[2018-05-03 17:29] VITALS: BP 123/69
[2018-05-04 02:55] VITALS: BP 109/68
[2018-05-04 08:21] VITALS: BP 131/68
[2018-05-04] MEDS: MULTIVITAMINS WITH IRON TABLET PO SCH (08:21)
[2018-05-04] MEDS: VALPROIC ACID 250 MG CAPSULE PO SCH ×2 (08:21→16:02)
[2018-05-04] MEDS: ARIPiprazole 15 MG TABLET PO SCH (08:21)
[2018-05-04 08:30] LABS: BAND NEUTROPHILS % (MANUAL) 0 % (0-5)
[2018-05-04 08:35] LABS: HEMATOCRIT 40.1 % (41-53); HEMOGLOBIN 13.4 g/dL (13.5-17.5); MEAN CORPUSCULAR HEMOGLOBIN 29.1 pg (26.0-34.0); MEAN CORPUSCULAR HGB CONC 33.5 G/dL (31.0-37.0); MEAN CORPUSCULAR VOLUME 87 fL (80-100); PLATELET COUNT (AUTO) 222 K/uL (150-450); RED BLOOD CELL COUNT(AUTO) 4.61 MIL/uL (4.50-5.90); RED CELL DISTRIBUTION WIDTH 13.6 % (11.5-14.5)
[2018-05-04 09:34] LABS: EOSINOPHILS % (MANUAL) 1 % (1-6); LYMPHOCYTES % (MANUAL) 51 % (22-44); MONOCYTES % (MANUAL) 7 % (2-9); SEGMENTED NEUTROPHILS % 41 % (40-70)
[2018-05-04] MEDS ORDERED: BISACODYL 5 MG EC TABLET PO PRN (11:30)
[2018-05-04 16:16] VITALS: BP 112/69
[2018-05-05 02:48] VITALS: BP 108/69
[2018-05-05] MEDS: VALPROIC ACID 250 MG CAPSULE PO SCH ×2 (08:02→16:58)
[2018-05-05] MEDS: ARIPiprazole 15 MG TABLET PO SCH (08:02)
[2018-05-05] MEDS: MULTIVITAMINS WITH IRON TABLET PO SCH (08:02)
[2018-05-05 08:35] VITALS: BP 107/67
[2018-05-05 16:10] VITALS: BP 109/68
[2018-05-06 03:01] VITALS: BP 101/65
[2018-05-06 08:35] VITALS: BP 116/72
[2018-05-06] MEDS: ARIPiprazole 15 MG TABLET PO SCH (09:20)
[2018-05-06] MEDS: MULTIVITAMINS WITH IRON TABLET PO SCH (09:20)
[2018-05-06] MEDS: VALPROIC ACID 250 MG CAPSULE PO SCH ×2 (09:21→16:50)
[2018-05-06] MEDS: LORazepam 2 MG TABLET PO PRN (12:01)
[2018-05-06 16:11] VITALS: BP 111/64
[2018-05-07 05:25] VITALS: BP 109/75
[2018-05-07 08:08] VITALS: BP 108/63
[2018-05-07] MEDS: MULTIVITAMINS WITH IRON TABLET PO SCH (08:53)
[2018-05-07] MEDS: VALPROIC ACID 250 MG CAPSULE PO SCH ×2 (08:53→16:12)
[2018-05-07] MEDS: ARIPiprazole 15 MG TABLET PO SCH (08:53)
[2018-05-07 16:06] VITALS: BP 134/66
[2018-05-07] MEDS: ZOLPIDEM TARTRATE 10 MG TABLET PO PRN (21:09)
[2018-05-08 04:27] VITALS: BP 109/60
[2018-05-08] MEDS: ARIPiprazole 15 MG TABLET PO SCH (08:15)
[2018-05-08] MEDS: MULTIVITAMINS WITH IRON TABLET PO SCH (08:15)
[2018-05-08] MEDS: VALPROIC ACID 250 MG CAPSULE PO SCH (08:15)
[2018-05-08 08:50] VITALS: BP 112/66
[2018-05-08] MEDS ORDERED: VALP250 PO (11:23)
[2018-05-08] MEDS ORDERED: ARIP882S IM (11:26)
[2018-05-08] MEDS ORDERED: ARIP15TA2 PO (11:26)
[2018-05-08] MEDS: LORazepam 2 MG TABLET PO PRN (13:21)
[2018-05-26] MEDS ORDERED: ARIPiprazole LAUROXIL ER SUSPENSION 882 MG/3.2 ML SYRINGE IM SCH (09:00)
== END 2018-05-08 19:45 | disposition home or self-care (01) | DRG 885 ==
LOC: EMS 22:49 → B2X 04-22 01:20
PROVIDERS: ADMIT Psychiatry & Neurology Psychiatry; ATTEND Psychiatry & Neurology Psychiatry
DX: F25.0 Schizoaffective disorder, bipolar type (principal); B19.20 Unspecified viral hepatitis C without hepatic coma; R45.851 Suicidal ideations; E44.0 Moderate protein-calorie malnutrition; F41.9 Anxiety disorder, unspecified; F17.200 Nicotine dependence, unspecified, uncomplicated; D64.9 Anemia, unspecified; K59.00 Constipation, unspecified; F12.10 Cannabis abuse, uncomplicated; F15.10 Other stimulant abuse, uncomplicated; F19.10 Other psychoactive substance abuse, uncomplicated; R79.89 Other specified abnormal findings of blood chemistry; Z91.19 Patient's noncompliance with other medical treatment and regimen; Z79.899 Other long term (current) drug therapy; Z23 Encounter for immunization
CPT/HCPCS: 85007; 90686; G0480; J1200; J1630; J2060

== ENCOUNTER 2020-12-18 17:13 | Inpatient (IN) | payer MEDICARE, MEDICAID ==
[~2020-12-18] VITALS: Ht 170.2 cm; Wt 70.9 kg
[2020-12-18 18:05] LABS: APPEARANCE,URINE CLEAR (CLEAR); BILIRUBIN,URINE NEGATIVE (NEGATIVE); GLUCOSE, URINE (UA) NEGATIVE (NEGATIVE); KETONES,URINE NEGATIVE (NEGATIVE); LEUKOCYTE ESTERASE ,URINE NEGATIVE (NEGATIVE); NITRATE,URINE NEGATIVE (NEGATIVE); OCCULT BLOOD,URINE NEGATIVE (NEGATIVE); PROTEIN,URINE NEGATIVE (NEGATIVE); UROBILINOGEN,URINE 0.2 mg/dL (<=1.0)
[2020-12-18 18:11] LABS: AMPHET/METH SCREEN,URINE POSITIVE (NEGATIVE); BARBITURATE SCREEN, URINE NEGATIVE (NEGATIVE); BENZODIAZEPINES SCREEN,URINE NEGATIVE (NEGATIVE); CANNABINOID SCREEN,URINE NEGATIVE (NEGATIVE); COCAINE SCREEN,URINE NEGATIVE (NEGATIVE); METHADONE SCREEN, URINE NEGATIVE (NEGATIVE); OPIATE SCREEN,URINE NEGATIVE (NEGATIVE)
[2020-12-18 18:12] LABS: PHENCYCLIDINE SCREEN,URINE NEGATIVE (NEGATIVE)
[2020-12-18 18:18] LABS: BASOPHILS % (AUTO) 0.8 % (0.0-2.0); EOSINOPHILS % (AUTO) 1.6 % (1.0-6.0); HEMATOCRIT 42.4 % (41-53); HEMOGLOBIN 14.3 g/dL (13.5-17.5); LYMPHOCYTES # (AUTO) 1.5 K/uL (1.0-4.8); LYMPHOCYTES % (AUTO) 27.7 % (22.0-44.0); MEAN CORPUSCULAR HEMOGLOBIN 30.3 pg (26.0-34.0); MEAN CORPUSCULAR HGB CONC 33.8 G/dL (31.0-37.0); MEAN CORPUSCULAR VOLUME 90 fL (80-100); MONOCYTES # (AUTO) 0.4 K/uL (0.1-1.0); MONOCYTES % (AUTO) 7.3 % (2.0-9.0); NEUTROPHILS # (AUTO) 3.5 K/uL (1.8-7.7); NEUTROPHILS % (AUTO) 62.6 % (40.0-70.0); PLATELET COUNT (AUTO) 221 K/uL (150-450); RED BLOOD CELL COUNT(AUTO) 4.73 MIL/uL (4.50-5.90)
[2020-12-18 18:26] LABS: ANION GAP 3 mmol/L (8-16); CALCIUM, TOTAL 8.8 mg/dL (8.8-10.5); CARBON DIOXIDE 32 mmol/L (22-29); CHLORIDE 100 mmol/L (98-107); CREATININE 0.77 mg/dL (0.60-1.30); GLOMERULAR FILTR. RATE CALC > 60 mL/min (>60); GLUCOSE,RANDOM 95 mg/dL (70-110); POTASSIUM 4.4 mmol/L (3.5-5.1); SODIUM SERUM 135 mmol/L (136-145); UREA NITROGEN, BLOOD 10 mg/dL (7-18)
[2020-12-18 18:29] LABS: BACTERIA,URINE None Seen /HPF (None Seen); RBC,URINE None Seen /HPF (0-2); WBC,URINE None Seen /HPF (0-5)
[2020-12-18 18:34] LABS: ALANINE AMINOTRANSFERASE 54 U/L (12-78); ALBUMIN 3.6 g/dL (3.4-5.0); ALKALINE PHOSPHATASE 93 U/L (46-116); ASPARTATE AMINOTRANSFERASE 30 U/L (15-37); BILIRUBIN,TOTAL 0.2 mg/dL (0.1-1.0); TOTAL PROTEIN, SERUM 7.6 g/dL (6.4-8.2)
[2020-12-18 18:36] LABS: SALICYLATE 3.9 mg/dL (2.8-20.0)
[2020-12-18 18:44] LABS: ACETAMINOPHEN < 2 mcg/mL (10-30)
[2020-12-18 19:11] LABS: COVID AG,FIA SOURCE NASOPHARYNGEAL
[2020-12-18] MEDS: HALOPERIDOL 5 MG TABLET PO PRN (20:34)
[2020-12-18] MEDS: LORazepam 2 MG TABLET PO PRN (20:34)
[2020-12-19 00:46] VITALS: BP 120/76
[2020-12-19] MEDS ORDERED: PETROLATUM,WHITE 28 GM JELLY TP PRN (07:45)
[2020-12-19] MEDS ORDERED: NICOTINE 14 MG/24 HOUR PATCH TD PRN (07:45)
[2020-12-19] MEDS ORDERED: ONDANSETRON HCL 4 MG TABLET PO PRN (07:45)
[2020-12-19] MEDS ORDERED: LOPERAMIDE HCL 2 MG CAPSULE PO PRN (07:45)
[2020-12-19] MEDS ORDERED: GuaiFENesin/D-METHORPHAN [SUGAR-FREE] 200-20MG/10 ML SYRUP UDCUP PO PRN (07:45)
[2020-12-19] MEDS ORDERED: MAGNESIUM HYDROXIDE SUSPENSION 30 ML UDCUP PO PRN (07:45)
[2020-12-19] MEDS ORDERED: DOCUSATE SODIUM 100 MG CAPSULE PO PRN (07:45)
[2020-12-19] MEDS ORDERED: CloNIDine HCL 0.1 MG TABLET PO PRN (07:45)
[2020-12-19 08:00] LABS: CHOL/HDL RATIO 3.2 (4.2-7.3)
[2020-12-19 08:47] VITALS: BP 100/60
[2020-12-19 16:07] VITALS: BP 118/72
[2020-12-19] MEDS: RisperiDONE 2 MG TABLET PO SCH ×2 (16:48)
[2020-12-20 05:54] VITALS: BP 100/57
[2020-12-20] MEDS: RisperiDONE 2 MG TABLET PO SCH ×3 (08:10→16:21)
[2020-12-20] MEDS: LORazepam 2 MG TABLET PO PRN ×2 (08:10→16:21)
[2020-12-20 08:17] VITALS: BP 112/63
[2020-12-20 16:18] VITALS: BP 104/66
[2020-12-20] MEDS: HALOPERIDOL 5 MG TABLET PO PRN (16:21)
[2020-12-21 06:29] VITALS: BP 123/78
[2020-12-21] MEDS: LORazepam 2 MG TABLET PO PRN ×2 (08:00→16:26)
[2020-12-21] MEDS: HALOPERIDOL 5 MG TABLET PO PRN ×2 (08:00→16:26)
[2020-12-21] MEDS: RisperiDONE 2 MG TABLET PO SCH ×2 (08:17→16:26)
[2020-12-21 08:35] VITALS: BP 95/56
[2020-12-21 16:24] VITALS: BP 120/71
[2020-12-22] MEDS: HALOPERIDOL 5 MG TABLET PO PRN ×2 (08:00→16:31)
[2020-12-22] MEDS: LORazepam 2 MG TABLET PO PRN ×2 (08:00→16:31)
[2020-12-22] MEDS: RisperiDONE 2 MG TABLET PO SCH ×2 (08:28→16:31)
[2020-12-22 08:39] VITALS: BP 126/72
[2020-12-22] MEDS: ACETAMINOPHEN 325 MG TABLET PO PRN (15:10)
[2020-12-22 16:06] VITALS: BP 121/65
[2020-12-23 06:00] VITALS: BP 120/60
[2020-12-23 08:24] VITALS: BP 120/70
[2020-12-23 08:42] VITALS: BP 120/70
[2020-12-23] MEDS: RisperiDONE 2 MG TABLET PO SCH ×2 (08:45→16:00)
[2020-12-23] MEDS: HALOPERIDOL 5 MG TABLET PO PRN (08:45)
[2020-12-23] MEDS: LORazepam 2 MG TABLET PO PRN (08:45)
[2020-12-23] MEDS: ACETAMINOPHEN 325 MG TABLET PO PRN (10:41)
[2020-12-23 16:12] VITALS: BP 147/74
[2020-12-23] MEDS: MAG HYDROX/AL HYDROX/SIMETH ES 30 ML SUSPENSION UDCUP PO PRN (19:54)
[2020-12-24 02:50] VITALS: BP 129/74
[2020-12-24] MEDS: LORazepam 2 MG TABLET PO PRN ×2 (08:00→16:13)
[2020-12-24] MEDS: HALOPERIDOL 5 MG TABLET PO PRN ×2 (08:00→16:13)
[2020-12-24 08:14] VITALS: BP 133/71
[2020-12-24] MEDS: RisperiDONE 2 MG TABLET PO SCH ×2 (08:15→16:13)
[2020-12-24 16:08] VITALS: BP 106/62
[2020-12-24] MEDS: ZOLPIDEM TARTRATE 10 MG TABLET PO PRN (20:22)
[2020-12-25 05:49] VITALS: BP 113/68
[2020-12-25] MEDS: RisperiDONE 2 MG TABLET PO SCH ×2 (08:06→16:39)
[2020-12-25 08:12] VITALS: BP 125/66
[2020-12-25] MEDS: ACETAMINOPHEN 325 MG TABLET PO PRN (13:32)
[2020-12-25 16:13] VITALS: BP 150/79
[2020-12-25] MEDS: MAG HYDROX/AL HYDROX/SIMETH ES 30 ML SUSPENSION UDCUP PO PRN (19:04)
[2020-12-26 00:08] VITALS: BP 117/55
[2020-12-26 08:14] VITALS: BP 145/76
[2020-12-26] MEDS: RisperiDONE 2 MG TABLET PO SCH ×2 (09:10→16:36)
[2020-12-26] MEDS: ACETAMINOPHEN 325 MG TABLET PO PRN (09:44)
[2020-12-26] MEDS: HALOPERIDOL 5 MG TABLET PO PRN (11:43)
[2020-12-26] MEDS: LORazepam 2 MG TABLET PO PRN (11:43)
[2020-12-26 16:10] VITALS: BP 117/63
[2020-12-27 00:10] VITALS: BP 119/65
[2020-12-27 08:10] VITALS: BP 103/62
[2020-12-27] MEDS: RisperiDONE 2 MG TABLET PO SCH ×2 (08:32→16:47)
[2020-12-27] MEDS: LORazepam 2 MG TABLET PO PRN (09:15)
[2020-12-27 16:05] VITALS: BP 125/73
[2020-12-27] MEDS: ACETAMINOPHEN 325 MG TABLET PO PRN (16:13)
[2020-12-27] MEDS: MAG HYDROX/AL HYDROX/SIMETH ES 30 ML SUSPENSION UDCUP PO PRN (18:38)
[2020-12-28 01:18] VITALS: BP 121/61
[2020-12-28] MEDS: RisperiDONE 2 MG TABLET PO SCH ×2 (08:27→16:27)
[2020-12-28 08:50] VITALS: BP 112/62
[2020-12-28] MEDS: LORazepam 2 MG TABLET PO PRN (11:59)
[2020-12-28] MEDS: MAG HYDROX/AL HYDROX/SIMETH ES 30 ML SUSPENSION UDCUP PO PRN (15:17)
[2020-12-28 17:25] VITALS: BP 126/77
[2020-12-28] MEDS: ACETAMINOPHEN 325 MG TABLET PO PRN (19:50)
[2020-12-29] MEDS: ZOLPIDEM TARTRATE 10 MG TABLET PO PRN (00:51)
[2020-12-29 01:35] VITALS: BP 123/79
[2020-12-29 07:12] LABS: COVID AG,FIA SOURCE NASOPHARYNGEAL
[2020-12-29] MEDS: RisperiDONE 2 MG TABLET PO SCH ×2 (08:01→16:30)
[2020-12-29 08:05] VITALS: BP 126/66
[2020-12-29] MEDS: LORazepam 2 MG TABLET PO PRN (08:11)
[2020-12-29 16:04] VITALS: BP 112/70
[2020-12-30 00:23] VITALS: BP 125/64
[2020-12-30] MEDS: RisperiDONE 2 MG TABLET PO SCH ×2 (08:14→16:03)
[2020-12-30 08:15] VITALS: BP 118/78
[2020-12-30] MEDS: LORazepam 2 MG TABLET PO PRN ×2 (14:36→18:45)
[2020-12-30] MEDS: HALOPERIDOL 5 MG TABLET PO PRN (16:03)
[2020-12-30 16:14] VITALS: BP 143/83
[2020-12-30] MEDS: ALBUTEROL SULFATE HFA 90 MCG/PUFF 8 GM INHALER IH PRN (17:12)
[2020-12-31 05:31] VITALS: BP 111/64
[2020-12-31 08:22] VITALS: BP 138/74
[2020-12-31] MEDS: RisperiDONE 2 MG TABLET PO SCH ×2 (08:46→16:23)
[2020-12-31] MEDS ORDERED: LORazepam 2 MG/ML VIAL IM ONE (11:00)
[2020-12-31] MEDS ORDERED: HALOPERIDOL LACTATE 5 MG/ML VIAL IM ONE (11:00)
[2020-12-31] MEDS ORDERED: DiphenhydrAMINE HCL 50 MG/ML VIAL IM ONE (11:00)
[2020-12-31] MEDS ORDERED: LORazepam 2 MG/ML VIAL ONE (11:05)
[2020-12-31] MEDS ORDERED: HALOPERIDOL LACTATE 5 MG/ML VIAL ONE (11:05)
[2020-12-31] MEDS ORDERED: DiphenhydrAMINE HCL 50 MG/ML VIAL ONE (11:05)
[2020-12-31 16:29] VITALS: BP 108/65
[2021-01-01 00:30] VITALS: BP 105/63
[2021-01-01] MEDS: LORazepam 2 MG TABLET PO PRN (08:10)
[2021-01-01] MEDS: RisperiDONE 2 MG TABLET PO SCH (08:10)
[2021-01-01 08:18] VITALS: BP 107/66
[2021-01-01] MEDS: ACETAMINOPHEN 325 MG TABLET PO PRN (10:05)
[2021-01-01 16:04] VITALS: BP 105/55
[2021-01-01] MEDS: RisperiDONE 3 MG TABLET PO SCH (16:08)
[2021-01-02 01:41] VITALS: BP 108/68
[2021-01-02] MEDS: ZOLPIDEM TARTRATE 10 MG TABLET PO PRN (03:02)
[2021-01-02 08:19] VITALS: BP 108/66
[2021-01-02] MEDS: LORazepam 2 MG TABLET PO PRN ×2 (08:21→20:15)
[2021-01-02] MEDS: RisperiDONE 3 MG TABLET PO SCH ×2 (08:21→16:33)
[2021-01-02] MEDS: HALOPERIDOL 5 MG TABLET PO PRN (09:40)
[2021-01-02] MEDS: ACETAMINOPHEN 325 MG TABLET PO PRN (16:34)
[2021-01-02 16:35] VITALS: BP 143/80
[2021-01-02] MEDS: MAG HYDROX/AL HYDROX/SIMETH ES 30 ML SUSPENSION UDCUP PO PRN (20:15)
[2021-01-03 00:09] VITALS: BP 97/59
[2021-01-03] MEDS: MAG HYDROX/AL HYDROX/SIMETH ES 30 ML SUSPENSION UDCUP PO PRN (07:59)
[2021-01-03] MEDS: RisperiDONE 3 MG TABLET PO SCH ×2 (08:01→16:50)
[2021-01-03] MEDS: LORazepam 2 MG TABLET PO PRN (08:01)
[2021-01-03 09:06] VITALS: BP 114/66
[2021-01-03 16:18] VITALS: BP 134/75
[2021-01-03] MEDS: ZOLPIDEM TARTRATE 10 MG TABLET PO PRN (22:43)
[2021-01-04 00:27] VITALS: BP 122/69
[2021-01-04] MEDS: LORazepam 2 MG TABLET PO PRN ×2 (04:34→09:32)
[2021-01-04 07:51] LABS: COVID AG,FIA SOURCE NASOPHARYNGEAL
[2021-01-04 08:06] VITALS: BP 104/56
[2021-01-04] MEDS ORDERED: LORazepam 1 MG TABLET ONE (08:09)
[2021-01-04] MEDS: RisperiDONE 3 MG TABLET PO SCH ×2 (08:48→16:31)
[2021-01-04 16:12] VITALS: BP 107/64
[2021-01-04] MEDS: LORazepam 1 MG TABLET PO PRN (17:32)
[2021-01-04] MEDS: ZOLPIDEM TARTRATE 10 MG TABLET PO PRN (20:58)
[2021-01-05 03:09] VITALS: BP 110/62
[2021-01-05] MEDS: LORazepam 1 MG TABLET PO PRN ×2 (04:50→14:30)
[2021-01-05 08:23] VITALS: BP 110/62
[2021-01-05] MEDS: RisperiDONE 3 MG TABLET PO SCH ×2 (09:00→16:50)
[2021-01-05 16:11] VITALS: BP 115/72
[2021-01-05] MEDS: ZOLPIDEM TARTRATE 10 MG TABLET PO PRN (21:17)
[2021-01-05] MEDS: MAG HYDROX/AL HYDROX/SIMETH ES 30 ML SUSPENSION UDCUP PO PRN (21:23)
[2021-01-06 00:17] VITALS: BP 114/73
[2021-01-06] MEDS: LORazepam 2 MG TABLET PO PRN ×2 (08:22→15:55)
[2021-01-06] MEDS: RisperiDONE 3 MG TABLET PO SCH ×2 (08:22→16:53)
[2021-01-06 08:43] VITALS: BP 118/60
[2021-01-06] MEDS: ACETAMINOPHEN 325 MG TABLET PO PRN (15:55)
[2021-01-06 16:00] VITALS: BP 133/76
[2021-01-07 05:20] VITALS: BP 112/78
[2021-01-07 08:19] VITALS: BP 129/69
[2021-01-07] MEDS: LORazepam 2 MG TABLET PO PRN ×2 (08:46→13:00)
[2021-01-07] MEDS: RisperiDONE 3 MG TABLET PO SCH ×2 (08:46→16:43)
[2021-01-07] MEDS: HALOPERIDOL 5 MG TABLET PO PRN ×2 (09:49→13:50)
[2021-01-07] MEDS: IBUPROFEN 400 MG TABLET PO PRN (09:49)
[2021-01-07 16:08] VITALS: BP 139/72
[2021-01-07] MEDS: ZOLPIDEM TARTRATE 10 MG TABLET PO PRN (21:18)
[2021-01-08 02:52] VITALS: BP 129/68
[2021-01-08 08:19] VITALS: BP 125/71
[2021-01-08] MEDS: RisperiDONE 3 MG TABLET PO SCH ×2 (08:51→16:31)
[2021-01-08] MEDS ORDERED: PALIPERIDONE PALMITATE 234 MG/1.5 ML SYRINGE IM ONE ×2 (09:00)
[2021-01-08 16:16] VITALS: BP 117/79
[2021-01-08] MEDS: ZOLPIDEM TARTRATE 10 MG TABLET PO PRN (20:46)
[2021-01-09] MEDS: LORazepam 2 MG TABLET PO PRN ×2 (02:22→16:48)
[2021-01-09 03:53] VITALS: BP 113/72
[2021-01-09 08:16] VITALS: BP 118/70
[2021-01-09] MEDS: RisperiDONE 3 MG TABLET PO SCH ×2 (09:26→16:47)
[2021-01-09 16:21] VITALS: BP 140/80
[2021-01-09] MEDS: ZOLPIDEM TARTRATE 10 MG TABLET PO PRN (20:12)
[2021-01-10] MEDS: LORazepam 2 MG TABLET PO PRN ×3 (00:40→19:57)
[2021-01-10 00:41] VITALS: BP 114/68
[2021-01-10 08:26] VITALS: BP 108/69
[2021-01-10] MEDS: RisperiDONE 3 MG TABLET PO SCH ×2 (09:31→16:40)
[2021-01-10] MEDS: HALOPERIDOL 5 MG TABLET PO PRN (13:38)
[2021-01-10 16:27] VITALS: BP 127/65
[2021-01-11 05:46] VITALS: BP 127/68
[2021-01-11 07:42] LABS: COVID AG,FIA SOURCE NASOPHARYNGEAL
[2021-01-11 07:46] LABS: ANION GAP 4 mmol/L (8-16); CALCIUM, TOTAL 9.1 mg/dL (8.8-10.5); CARBON DIOXIDE 24 mmol/L (22-29); CHLORIDE 106 mmol/L (98-107); CREATININE 0.74 mg/dL (0.60-1.30); GLOMERULAR FILTR. RATE CALC > 60 mL/min (>60); GLUCOSE,RANDOM 128 mg/dL (70-110); SODIUM SERUM 134 mmol/L (136-145); UREA NITROGEN, BLOOD 12 mg/dL (7-18)
[2021-01-11 08:13] VITALS: BP 110/60
[2021-01-11] MEDS: RisperiDONE 3 MG TABLET PO SCH ×2 (09:36→16:37)
[2021-01-11 16:29] VITALS: BP 139/80
[2021-01-11] MEDS: LORazepam 2 MG TABLET PO PRN (19:52)
[2021-01-12 05:57] VITALS: BP 104/58
[2021-01-12] MEDS: LORazepam 2 MG TABLET PO PRN ×2 (06:38→20:21)
[2021-01-12 08:52] VITALS: BP 109/62
[2021-01-12] MEDS: RisperiDONE 3 MG TABLET PO SCH ×2 (09:54→16:32)
[2021-01-12] MEDS: DIVALPROEX SODIUM 500 MG DR TABLET PO SCH (12:51)
[2021-01-12 16:36] VITALS: BP 131/72
[2021-01-13 01:52] VITALS: BP 116/64
[2021-01-13 08:15] VITALS: BP 114/65
[2021-01-13] MEDS: RisperiDONE 3 MG TABLET PO SCH ×2 (08:29→16:32)
[2021-01-13] MEDS: DIVALPROEX SODIUM 500 MG DR TABLET PO SCH (08:30)
[2021-01-13] MEDS: LORazepam 2 MG TABLET PO PRN ×2 (09:41→19:57)
[2021-01-13] MEDS: HALOPERIDOL 5 MG TABLET PO PRN (12:36)
[2021-01-13 16:14] VITALS: BP 117/72
[2021-01-14 05:25] VITALS: BP 114/70
[2021-01-14 08:10] VITALS: BP 106/66
[2021-01-14] MEDS: DIVALPROEX SODIUM 500 MG DR TABLET PO SCH (08:45)
[2021-01-14] MEDS: LORazepam 2 MG TABLET PO PRN (08:45)
[2021-01-14] MEDS: RisperiDONE 3 MG TABLET PO SCH ×2 (08:46→16:20)
[2021-01-14] MEDS: HALOPERIDOL 5 MG TABLET PO PRN (08:46)
[2021-01-14 16:18] VITALS: BP 140/77
[2021-01-14] MEDS: ZOLPIDEM TARTRATE 10 MG TABLET PO PRN (22:45)
[2021-01-15 04:10] VITALS: BP 126/68
[2021-01-15 08:21] VITALS: BP 119/70
[2021-01-15] MEDS: RisperiDONE 3 MG TABLET PO SCH ×2 (08:59→16:29)
[2021-01-15] MEDS: DIVALPROEX SODIUM 500 MG DR TABLET PO SCH (08:59)
[2021-01-15] MEDS: LORazepam 2 MG TABLET PO PRN (09:05)
[2021-01-15] MEDS: HALOPERIDOL 5 MG TABLET PO PRN (09:05)
[2021-01-15 16:16] VITALS: BP 121/72
[2021-01-15 21:08] VITALS: BP 130/70
[2021-01-15] MEDS: IBUPROFEN 400 MG TABLET PO PRN (21:20)
[2021-01-16 04:59] VITALS: BP 112/60
[2021-01-16 08:32] VITALS: BP 116/78
[2021-01-16] MEDS: RisperiDONE 3 MG TABLET PO SCH ×2 (08:38→17:03)
[2021-01-16] MEDS: DIVALPROEX SODIUM 500 MG DR TABLET PO SCH (08:38)
[2021-01-16] MEDS: HALOPERIDOL 5 MG TABLET PO PRN (08:38)
[2021-01-16] MEDS: LORazepam 2 MG TABLET PO PRN (08:38)
[2021-01-16] MEDS: MAG HYDROX/AL HYDROX/SIMETH ES 30 ML SUSPENSION UDCUP PO PRN (09:04)
[2021-01-16 16:09] VITALS: BP 133/80
[2021-01-17 00:36] VITALS: BP 115/67
[2021-01-17] MEDS: MULTIVITAMINS WITH MINERALS, THERAPEUTIC TABLET PO SCH (08:18)
[2021-01-17] MEDS: DIVALPROEX SODIUM 500 MG DR TABLET PO SCH (08:18)
[2021-01-17] MEDS: RisperiDONE 3 MG TABLET PO SCH ×2 (08:18→16:25)
[2021-01-17] MEDS: HALOPERIDOL 5 MG TABLET PO PRN (08:18)
[2021-01-17] MEDS: LORazepam 2 MG TABLET PO PRN ×2 (08:18→15:39)
[2021-01-17 08:49] VITALS: BP 120/78
[2021-01-17 16:04] VITALS: BP 121/72
[2021-01-17] MEDS: ZOLPIDEM TARTRATE 10 MG TABLET PO PRN (22:04)
[2021-01-18 00:10] VITALS: BP 132/72
[2021-01-18 06:31] LABS: COVID AG,FIA SOURCE NASOPHARYNGEAL
[2021-01-18 08:10] VITALS: BP 114/69
[2021-01-18] MEDS: HALOPERIDOL 5 MG TABLET PO PRN (08:26)
[2021-01-18] MEDS: LORazepam 2 MG TABLET PO PRN (08:26)
[2021-01-18] MEDS: MULTIVITAMINS WITH MINERALS, THERAPEUTIC TABLET PO SCH (08:26)
[2021-01-18] MEDS: DIVALPROEX SODIUM 500 MG DR TABLET PO SCH (08:26)
[2021-01-18] MEDS: RisperiDONE 3 MG TABLET PO SCH ×2 (08:26→17:21)
[2021-01-18] MEDS: MAG HYDROX/AL HYDROX/SIMETH ES 30 ML SUSPENSION UDCUP PO PRN (12:05)
[2021-01-18 16:05] VITALS: BP 120/73
[2021-01-19 00:15] VITALS: BP 127/65
[2021-01-19] MEDS: DIVALPROEX SODIUM 500 MG DR TABLET PO SCH (08:32)
[2021-01-19] MEDS: MULTIVITAMINS WITH MINERALS, THERAPEUTIC TABLET PO SCH (08:32)
[2021-01-19] MEDS: RisperiDONE 3 MG TABLET PO SCH ×2 (08:32→16:15)
[2021-01-19 08:57] VITALS: BP 119/64
[2021-01-19] MEDS: MAG HYDROX/AL HYDROX/SIMETH ES 30 ML SUSPENSION UDCUP PO PRN (11:20)
[2021-01-19 16:08] VITALS: BP 137/73
[2021-01-19] MEDS: ZOLPIDEM TARTRATE 10 MG TABLET PO PRN (21:36)
[2021-01-20 04:58] VITALS: BP 103/60
[2021-01-20 08:12] VITALS: BP 126/68
[2021-01-20] MEDS: MULTIVITAMINS WITH MINERALS, THERAPEUTIC TABLET PO SCH (08:27)
[2021-01-20] MEDS: DIVALPROEX SODIUM 500 MG DR TABLET PO SCH (08:27)
[2021-01-20] MEDS: LORazepam 2 MG TABLET PO PRN (08:27)
[2021-01-20] MEDS: RisperiDONE 3 MG TABLET PO SCH ×2 (08:27→16:00)
[2021-01-20 16:02] VITALS: BP 121/63
[2021-01-20] MEDS: ALBUTEROL SULFATE HFA 90 MCG/PUFF 8 GM INHALER IH PRN (19:33)
[2021-01-20] MEDS: ZOLPIDEM TARTRATE 10 MG TABLET PO PRN (20:17)
[2021-01-21 05:02] VITALS: BP 118/64
[2021-01-21 08:13] VITALS: BP 118/73
[2021-01-21] MEDS: RisperiDONE 3 MG TABLET PO SCH ×2 (08:20→16:26)
[2021-01-21] MEDS: MULTIVITAMINS WITH MINERALS, THERAPEUTIC TABLET PO SCH (08:20)
[2021-01-21] MEDS: DIVALPROEX SODIUM 500 MG DR TABLET PO SCH (08:20)
[2021-01-21] MEDS: LORazepam 2 MG TABLET PO PRN ×2 (08:21→16:28)
[2021-01-21] MEDS: HALOPERIDOL 5 MG TABLET PO PRN (08:21)
[2021-01-21] MEDS: MAG HYDROX/AL HYDROX/SIMETH ES 30 ML SUSPENSION UDCUP PO PRN (09:25)
[2021-01-21 16:10] VITALS: BP 119/66
[2021-01-21] MEDS: ALBUTEROL SULFATE HFA 90 MCG/PUFF 8 GM INHALER IH PRN (16:27)
[2021-01-21] MEDS: ZOLPIDEM TARTRATE 10 MG TABLET PO PRN (20:46)
[2021-01-22 05:35] VITALS: BP 125/72
[2021-01-22 08:19] VITALS: BP 121/66
[2021-01-22] MEDS: RisperiDONE 3 MG TABLET PO SCH ×2 (08:31→16:54)
[2021-01-22] MEDS: DIVALPROEX SODIUM 500 MG DR TABLET PO SCH (08:31)
[2021-01-22] MEDS: MULTIVITAMINS WITH MINERALS, THERAPEUTIC TABLET PO SCH (08:31)
[2021-01-22] MEDS: MAG HYDROX/AL HYDROX/SIMETH ES 30 ML SUSPENSION UDCUP PO PRN (09:08)
[2021-01-22] MEDS: LORazepam 2 MG TABLET PO PRN (11:01)
[2021-01-22 17:42] VITALS: BP 139/74
[2021-01-22] MEDS: ZOLPIDEM TARTRATE 10 MG TABLET PO PRN (20:29)
[2021-01-23 00:36] VITALS: BP 117/61
[2021-01-23 08:12] VITALS: BP 116/70
[2021-01-23] MEDS: MULTIVITAMINS WITH MINERALS, THERAPEUTIC TABLET PO SCH (08:49)
[2021-01-23] MEDS: RisperiDONE 3 MG TABLET PO SCH ×2 (08:49→16:30)
[2021-01-23] MEDS: DIVALPROEX SODIUM 500 MG DR TABLET PO SCH (08:49)
[2021-01-23] MEDS: MAG HYDROX/AL HYDROX/SIMETH ES 30 ML SUSPENSION UDCUP PO PRN (09:39)
[2021-01-23] MEDS ORDERED: TUBERCULIN, PURIFIED PROTEIN DERIVATIVE 5 TU/0.1 ML SYRINGE ID ONE (14:45)
[2021-01-23 16:12] VITALS: BP 119/69
[2021-01-23] MEDS: ZOLPIDEM TARTRATE 10 MG TABLET PO PRN (23:18)
[2021-01-24 06:30] VITALS: BP 124/78
[2021-01-24 08:10] VITALS: BP 140/64
[2021-01-24] MEDS: RisperiDONE 3 MG TABLET PO SCH ×2 (08:22→17:14)
[2021-01-24] MEDS: DIVALPROEX SODIUM 500 MG DR TABLET PO SCH (08:22)
[2021-01-24] MEDS: LORazepam 2 MG TABLET PO PRN (08:22)
[2021-01-24] MEDS: HALOPERIDOL 5 MG TABLET PO PRN (08:23)
[2021-01-24] MEDS: MULTIVITAMINS WITH MINERALS, THERAPEUTIC TABLET PO SCH (08:23)
[2021-01-24 16:15] VITALS: BP 103/68
[2021-01-24] MEDS: ZOLPIDEM TARTRATE 10 MG TABLET PO PRN (20:19)
[2021-01-25 00:58] VITALS: BP 125/74
[2021-01-25] MEDS: LORazepam 2 MG TABLET PO PRN ×3 (01:18→14:00)
[2021-01-25 08:03] VITALS: BP 108/61
[2021-01-25] MEDS: MULTIVITAMINS WITH MINERALS, THERAPEUTIC TABLET PO SCH (08:31)
[2021-01-25] MEDS: HALOPERIDOL 5 MG TABLET PO PRN ×2 (08:31→13:59)
[2021-01-25] MEDS: DIVALPROEX SODIUM 500 MG DR TABLET PO SCH (08:31)
[2021-01-25] MEDS: RisperiDONE 3 MG TABLET PO SCH ×2 (08:31→16:19)
[2021-01-25] MEDS: ALBUTEROL SULFATE HFA 90 MCG/PUFF 8 GM INHALER IH PRN (13:19)
[2021-01-25 16:11] VITALS: BP 135/69
[2021-01-25] MEDS: ZOLPIDEM TARTRATE 10 MG TABLET PO PRN (22:24)
[2021-01-26 05:22] VITALS: BP 125/73
[2021-01-26 08:07] VITALS: BP 112/65
[2021-01-26] MEDS: DIVALPROEX SODIUM 500 MG DR TABLET PO SCH (08:29)
[2021-01-26] MEDS: RisperiDONE 3 MG TABLET PO SCH ×2 (08:29→16:29)
[2021-01-26] MEDS: MULTIVITAMINS WITH MINERALS, THERAPEUTIC TABLET PO SCH (08:30)
[2021-01-26] MEDS: LORazepam 2 MG TABLET PO PRN ×2 (08:30→15:02)
[2021-01-26] MEDS: HALOPERIDOL 5 MG TABLET PO PRN (09:28)
[2021-01-26 10:30] LABS: COVID AG,FIA SOURCE NASAL SWAB
[2021-01-26 16:05] VITALS: BP 137/76
[2021-01-26] MEDS: ZOLPIDEM TARTRATE 10 MG TABLET PO PRN (23:33)
[2021-01-27 00:33] VITALS: BP 120/71
[2021-01-27] MEDS: RisperiDONE 3 MG TABLET PO SCH ×2 (08:15→16:03)
[2021-01-27] MEDS: MULTIVITAMINS WITH MINERALS, THERAPEUTIC TABLET PO SCH (08:15)
[2021-01-27] MEDS: DIVALPROEX SODIUM 500 MG DR TABLET PO SCH (08:15)
[2021-01-27 08:36] VITALS: BP 101/59
[2021-01-27] MEDS: MAG HYDROX/AL HYDROX/SIMETH ES 30 ML SUSPENSION UDCUP PO PRN (12:13)
[2021-01-27 16:03] VITALS: BP 133/75
[2021-01-27] MEDS: IBUPROFEN 400 MG TABLET PO PRN (16:03)
[2021-01-27] MEDS: ZOLPIDEM TARTRATE 10 MG TABLET PO PRN (20:10)
[2021-01-28 01:59] VITALS: BP 12/64
[2021-01-28 08:44] VITALS: BP 136/74
[2021-01-28] MEDS: HALOPERIDOL 5 MG TABLET PO PRN (08:45)
[2021-01-28] MEDS: LORazepam 2 MG TABLET PO PRN ×2 (08:45→20:45)
[2021-01-28] MEDS: MULTIVITAMINS WITH MINERALS, THERAPEUTIC TABLET PO SCH (09:32)
[2021-01-28] MEDS: DIVALPROEX SODIUM 500 MG DR TABLET PO SCH (09:32)
[2021-01-28] MEDS: RisperiDONE 3 MG TABLET PO SCH ×2 (09:32→16:33)
[2021-01-28 16:29] VITALS: BP 140/70
[2021-01-29 00:15] VITALS: BP 129/78
[2021-01-29 08:26] VITALS: BP 109/60
[2021-01-29] MEDS: MULTIVITAMINS WITH MINERALS, THERAPEUTIC TABLET PO SCH (08:49)
[2021-01-29] MEDS: RisperiDONE 3 MG TABLET PO SCH ×2 (08:49→16:23)
[2021-01-29] MEDS: HALOPERIDOL 5 MG TABLET PO PRN (08:49)
[2021-01-29] MEDS: DIVALPROEX SODIUM 500 MG DR TABLET PO SCH (08:49)
[2021-01-29] MEDS: LORazepam 2 MG TABLET PO PRN (08:50)
[2021-01-29] MEDS: MAG HYDROX/AL HYDROX/SIMETH ES 30 ML SUSPENSION UDCUP PO PRN (14:13)
[2021-01-29 16:13] VITALS: BP 135/66
[2021-01-29] MEDS: ZOLPIDEM TARTRATE 10 MG TABLET PO PRN (21:32)
[2021-01-30 00:09] VITALS: BP 125/69
[2021-01-30 08:00] VITALS: BP 118/67
[2021-01-30] MEDS: DIVALPROEX SODIUM 500 MG DR TABLET PO SCH (08:43)
[2021-01-30] MEDS: MULTIVITAMINS WITH MINERALS, THERAPEUTIC TABLET PO SCH (08:43)
[2021-01-30] MEDS: RisperiDONE 3 MG TABLET PO SCH ×2 (08:43→16:39)
[2021-01-30 16:15] VITALS: BP 120/70
[2021-01-30] MEDS: IBUPROFEN 400 MG TABLET PO PRN (16:38)
[2021-01-30] MEDS: LORazepam 2 MG TABLET PO PRN (19:27)
[2021-01-31 03:48] VITALS: BP 107/61
[2021-01-31 08:32] VITALS: BP 102/57
[2021-01-31] MEDS: RisperiDONE 3 MG TABLET PO SCH ×2 (08:54→16:16)
[2021-01-31] MEDS: MULTIVITAMINS WITH MINERALS, THERAPEUTIC TABLET PO SCH (08:54)
[2021-01-31] MEDS: DIVALPROEX SODIUM 500 MG DR TABLET PO SCH (08:56)
[2021-01-31 16:20] VITALS: BP 113/66
[2021-01-31] MEDS: ZOLPIDEM TARTRATE 10 MG TABLET PO PRN (21:14)
[2021-02-01 00:22] VITALS: BP 122/60
[2021-02-01 07:19] LABS: COVID AG,FIA SOURCE NASOPHARYNGEAL
[2021-02-01] MEDS: RisperiDONE 3 MG TABLET PO SCH ×2 (08:06→16:16)
[2021-02-01] MEDS: MULTIVITAMINS WITH MINERALS, THERAPEUTIC TABLET PO SCH (08:06)
[2021-02-01] MEDS: DIVALPROEX SODIUM 500 MG DR TABLET PO SCH (08:06)
[2021-02-01 08:20] VITALS: BP 118/57
[2021-02-01] MEDS: MAG HYDROX/AL HYDROX/SIMETH ES 30 ML SUSPENSION UDCUP PO PRN (12:25)
[2021-02-01 16:20] VITALS: BP 129/66
[2021-02-01 20:22] VITALS: BP 145/68
[2021-02-01] MEDS: IBUPROFEN 400 MG TABLET PO PRN (20:22)
[2021-02-01] MEDS: ZOLPIDEM TARTRATE 10 MG TABLET PO PRN (21:10)
[2021-02-02 00:15] VITALS: BP 140/68
[2021-02-02 08:10] VITALS: BP 129/72
[2021-02-02] MEDS: RisperiDONE 3 MG TABLET PO SCH ×2 (08:24→16:55)
[2021-02-02] MEDS: LORazepam 2 MG TABLET PO PRN (08:24)
[2021-02-02] MEDS: DIVALPROEX SODIUM 500 MG DR TABLET PO SCH (08:24)
[2021-02-02] MEDS: MULTIVITAMINS WITH MINERALS, THERAPEUTIC TABLET PO SCH (08:24)
[2021-02-02] MEDS: HALOPERIDOL 5 MG TABLET PO PRN (08:24)
[2021-02-02 16:15] VITALS: BP 112/67
[2021-02-02] MEDS: ZOLPIDEM TARTRATE 10 MG TABLET PO PRN (20:43)
[2021-02-03 00:54] VITALS: BP 127/64
[2021-02-03 08:20] VITALS: BP 128/63
[2021-02-03] MEDS: DIVALPROEX SODIUM 500 MG DR TABLET PO SCH (09:15)
[2021-02-03] MEDS: MULTIVITAMINS WITH MINERALS, THERAPEUTIC TABLET PO SCH (09:15)
[2021-02-03] MEDS: RisperiDONE 3 MG TABLET PO SCH (09:15)
[2021-02-03] MEDS ORDERED: RISP3TAB35 PO (09:23)
[2021-02-03] MEDS ORDERED: DIVA-112 PO (09:23)
== END 2021-02-03 12:22 | disposition home or self-care (01) | DRG 885 ==
LOC: EMS 17:13 → B3A 20:36 → B2X 12-25 16:00
PROVIDERS: ADMIT Psychiatry & Neurology Child & Adolescent Psychiatry; ATTEND Psychiatry & Neurology Child & Adolescent Psychiatry
DX: F20.0 Paranoid schizophrenia (principal); E87.1 Hypo-osmolality and hyponatremia; F10.10 Alcohol abuse, uncomplicated; F15.10 Other stimulant abuse, uncomplicated; Z20.822 Contact with and (suspected) exposure to COVID-19; F41.9 Anxiety disorder, unspecified; Y90.9 Presence of alcohol in blood, level not specified; F19.10 Other psychoactive substance abuse, uncomplicated; Z59.0 Homelessness; Z87.891 Personal history of nicotine dependence; Z91.19 Patient's noncompliance with other medical treatment and regimen
CPT/HCPCS: 71045; 80048; 80053; 80061; 80164; 81001; 85025; 99285; G0480; G0481; J1200; J1630; J2060; J3535; 36415-L1; 36415-TC